=== PATIENT | male | born 1940 | race Caucasian/White ===

== ENCOUNTER 2016-11-18 12:10 | Inpatient (IN) | payer OTHER ==
[~2016-11-18] VITALS: Ht 172.7 cm; Wt 85.5 kg
[2016-11-18 12:48] LABS: MEAN CELL VOLUME 90.7 fL (80-100); MEAN CORPUSCULAR HEMOGLOBIN 31.7 pg (25-34); MEAN CORPUSCULAR HGB CONC 34.9 g/dl (32-36); MEAN PLATELET VOLUME 10.1 fL (7.4-10.4); PLATELET COUNT 187 K/uL (130-400); RED BLOOD COUNT 5.18 M/uL (4.7-6.1); WHITE BLOOD COUNT 12.88 K/uL (4.8-10.8)
--- NOTE | 2016-11-18 12:52 | DIAGNOSTIC IMAGING REPORT ---
CHEST ONE VIEW PORTABLE HISTORY: Atypical chest pain COMPARISON: None. FINDINGS: Low lung volumes. No pleural effusions. No pneumothorax. The heart is top normal in size. Mild central pulmonary vascular congestion without overt edema. No focal lung consolidations to suggest pneumonia. IMPRESSION: Mild central pulmonary vascular congestion without overt edema. Electronically signed by: Hansel العلي M.D. 11/18/2016 12:50 PM Dictated Date/Time: 11/18/2016 12:48 PM
[2016-11-18] MEDS ORDERED: TAMS0.4C38 PO (12:53)
[2016-11-18] MEDS ORDERED: PRED10TA PO (12:55)
[2016-11-18] MEDS ORDERED: PRED10PA3 PO (12:56)
[2016-11-18 12:58] LABS: INR 0.9 (0.9-1.1); PROTHROMBIN TIME (PATIENT) 9.9 SECONDS (9.0-12.0)
[2016-11-18 13:38] LABS: ALB/GLOB RATIO 0.9 (0.9-2); BUN/CREATININE RATIO 15.3 (10-20); CALCIUM 8.8 mg/dl (8.5-10.1); CREATININE 1.1 mg/dl (0.60-1.40)
[2016-11-18 13:55] LABS: POTASSIUM 3.8 mmol/L (3.5-5.1)
[2016-11-18] MEDS ORDERED: IV FLUIDS COMPLETED PRN (14:00)
[2016-11-18 14:08] LABS: CKMB/CK RATIO 1.5 (0-3.0)
[2016-11-18] MEDS ORDERED: COEN1CAP28 PO (14:22)
[2016-11-18] MEDS ORDERED: ASPEC81 PO (14:22)
[2016-11-18] MEDS ORDERED: IBUP-1459 PO (14:22)
[2016-11-18] MEDS ORDERED: MULT-506 PO (14:22)
[2016-11-18] MEDS ORDERED: TIZA4CAP PO (14:22)
[2016-11-18] MEDS ORDERED: ASCO10003 PO (14:22)
[2016-11-18] MEDS ORDERED: ACETAMINOPHEN 325 MG TAB PO PRN (14:30)
[2016-11-18] MEDS ORDERED: ONDANSETRON INJ 2 MG/ML 2 ML VIAL IV PRN (14:30)
[2016-11-18] MEDS ORDERED: NITROGLYCERIN 0.4 MG SL PER TAB CHARGE SL PRN (14:30)
[2016-11-18 14:54] VITALS: BP 125/73; PULSE 62; TEMP 36.4; O2SAT 99; Ht 172.7 cm; Wt 85.5 kg
--- NOTE | 2016-11-18 15:48 | History and Physical ---
History & Physical Date & Time of Service: November 18, 2016 ~ 14:00 Chief Complaint: Chest Pain Primary Care Physician: Tiffanie Galo M.D. History of Present Illness 76 year old male who presents to the ER with chest pain. Patient reports his first episode of chest pain was 4 days ago. He reports he noticed it when he was working outside. He describes the pain as being located in the center of his chest and radiating over to the left. He describes it as an indigestion type feeling. He rates the pain at its worst #5/10. He reports associated left arm numbness. He reports the pain improved with rest. The following day he went on his treadmill, as he typically does, and was only able to walk 1 mile when he can normally walk 2. He reports developing the same type of chest pain however this time had associated shortness of breath. He reports additional episodes of chest pain with exertion the past couple of days. He reports improvement with rest. He denies associated lightheadedness, dizziness, diaphoresis, syncope, or nausea. He reports he otherwise has been feeling well recently. He has been tolerating his ADLs without any problem. No orthopnea or lower extremity edema. He denies abdominal pain, vomiting, or diarrhea. No fever or chills. He denies urinary symptoms. In the ER, patient's initial troponin is negative and EKG does not show any acute ST changes. Patient was given full dose ASA by EMS. Past Medical/Surgical History Medical Problems: (1) BPH (benign prostatic hyperplasia) Status: Chronic Surgical Problems: (1) H/O arthroscopic knee surgery Status: Chronic (2) H/O inguinal hernia repair Status: Chronic Family History negative for premature CAD, DM, or CVA Social History Smoking Status: Former Smoker Alcohol Use: occasionally Immunizations History of Influenza Vaccine: Yes Influenza Vaccine Date: Apr 07, 2016 History of Tetanus Vaccine?: Yes Tetanus Immunization Date: Jul 13, 2012 History of Pneumococcal: Yes Pneumococcal Date: Dec 21, 2014 Allergies Coded Allergies: No Known Allergies (Unverified , 11/18/16) Home Medications Scheduled Ascorbic Acid (Vitamin C), 1,000 MG PO DAILY Aspirin (Aspirin EC Low Dose), 81 MG PO DAILY Coenzyme Q10 (Ubidecarenone) (Co Q10), 100 MG PO DAILY Multivitamin (Multivitamin), 1 TAB PO DAILY Tamsulosin Hcl (Flomax), 0.4 MG PO DAILY Scheduled PRN Ibuprofen (Motrin), 400 MG PO Q6H PRN for Pain Tizanidine (Zanaflex), 4 MG PO BID PRN for Muscle Spasms Review of Systems ROS per HPI, all other systems reviewed and negative Physical Exam Vital Signs Date Time Temp Pulse Resp B/P Pulse Ox O2 Delivery O2 Flow Rate FiO2 11/18/16 14:54 36.4 62 16 125/73 99 Room Air 11/18/16 13:53 54 18 129/69 96 Room Air 11/18/16 12:19 36.8 64 20 148/86 96 Room Air 11/18/16 12:18 66 General Appearance: no apparent distress Head: normocephalic Eyes: normal inspection ENT: hearing grossly normal Neck: supple, no JVD Respiratory/Chest: chest non-tender, lungs clear, normal breath sounds, no respiratory distress Cardiovascular: regular rate, rhythm, no edema, normal peripheral pulses Abdomen/GI: normal bowel sounds, non tender, soft Extremities/Musculoskelatal: normal inspection, no calf tenderness Neurologic/Psych: no motor/sensory deficits, alert, normal mood/affect, oriented x 3 Skin: normal color, warm/dry Diagnostics Laboratory Results Results Past 24 Hours Test 11/18/16 11:45 11/18/16 12:43 11/18/16 14:38 Range/Units White Blood Count 12.88 4.8-10.8 K/uL Red Blood Count 5.18 4.7-6.1 M/uL Hemoglobin 16.4 14.0-18.0 g/dL Hematocrit 47.0 42-52 % Mean Corpuscular Volume 90.7 80-100 fL Mean Corpuscular Hemoglobin 31.7 25-34 pg Mean Corpuscular Hemoglobin Concent 34.9 32-36 g/dl RDW Standard Deviation 48.0 36.4-46.3 fL RDW Coefficient of Variation 14.2 11.5-14.5 % Platelet Count 187 130-400 K/uL Mean Platelet Volume 10.1 7.4-10.4 fL Prothrombin Time 9.9 9.0-12.0 SECONDS Prothromb Time International Ratio 0.9 0.9-1.1 Activated Partial Thromboplast Time 26.0 21.0-31.0 SECONDS Partial Thromboplastin Ratio 1.0 D-Dimer 330 0-500 ug/L FEU Sodium Level 143 136-145 mmol/L Potassium Level 3.8 3.5-5.1 mmol/L Chloride Level 107 98-107 mmol/L Carbon Dioxide Level 27 21-32 mmol/L Anion Gap 9.0 3-11 mmol/L Blood Urea Nitrogen 17 7-18 mg/dl Creatinine 1.10 0.60-1.40 mg/dl Est Creatinine Clear Calc Drug Dose 61.9 ml/min Estimated GFR () 75.2 Estimated GFR (Non- 64.9 BUN/Creatinine Ratio 15.3 10-20 Random Glucose 108 70-99 mg/dl Calcium Level 8.8 8.5-10.1 mg/dl Total Bilirubin 0.5 0.2-1 mg/dl Aspartate Amino Transf (AST/SGOT) 12 15-37 U/L Alanine Aminotransferase (ALT/SGPT) 25 12-78 U/L Alkaline Phosphatase 72 45-117 U/L Total Creatine Kinase 55 39-308 U/L Creatine Kinase MB 0.8 0.5-3.6 ng/ml Creatine Kinase MB Ratio 1.5 0-3.0 Total Protein 7.7 6.4-8.2 gm/dl Albumin 3.7 3.4-5.0 gm/dl Globulin 4.0 2.5-4.0 gm/dl Albumin/Globulin Ratio 0.9 0.9-2 Bedside Troponin I 0.020 0-0.045 ng/ml Diagnostic Radiology CXR IMPRESSION: Mild central pulmonary vascular congestion without overt edema. Impression Assessment and Plan CHEST PAIN - admit to tele - patient presenting with exertional shortness of breath x 4 days with associated shortness of breath and left arm numbness - initial troponin negative, EKG without acute ST changes - no risk factors for CAD identified; check lipids in AM - s/p full dose ASA for EMS, will continue with 81mg daily tomorrow - continue to cycle cardiac enzymes, check resting echo; if negative, exercise stress test in AM - CXR being read as mild congestion however lungs clear on exam; D. Dimer negative BPH - continue tamsulosin DVT PROPHYLAXIS - SQ Lovenox DISPO - The patient will be placed as observation status for now until further work up is complete. ATTENDING ADDENDUM: records reviewed , pt seen and examined care co ordinated with Kathya LIPSCOMB please see her documentation for detail pt history Briefly 76 yo Male presents with exertional chest pain TODD symptom suggestive of angina chest pain free after arrival to ED P/E: GEN : No sign of distress HT: regular LUNGS: CTA ext : no lower ext edema neuro: no focal deficit Lab : POC troponin 0.02 EKG -NSR no ST-T wave changes A/P: UNSTABLE ANGINA : presented with symptom of ischemia worse with exertion no prior hx of ME monitor in tele serial cardiac markers resting ECHO ordered possible cardiac stress test in am if serial markers are negative, pt remains symptom free Fasting lipid panel /Hb A1 c ordered for risk stratification cont on Aspirin 81 mg daily PRN SL nitro for CP please refer to Kathya LIPSCOMB documentation for discussion of other issues Sandra Burkett MD Level of Care Telemetry Advanced Directives Existing Living Will: No Existing Power of Fuel House Attendant: No VTE Prophylaxis VTE Risk Assessment Done? Y/N: Yes Risk Level: Moderate Given or contraindicated: Unfractionated heparin SQ Additional Copies To Tiffanie Galo M.D.
[2016-11-18] MEDS ORDERED: ENOXAPARIN 40 MG/0.4 ML SYR SC SCH (16:00)
[2016-11-18 20:00] VITALS: BP 120/64; PULSE 58; TEMP 36.7; O2SAT 96
--- NOTE | 2016-11-18 20:29 | EMERGENCY ROOM VISIT NOTE ---
History Report prepared by Delonte: Mckayla Dalton Under the Supervision of: Dr. Henirk Guzman M.D. First contact with patient: 13:11 Chief Complaint: CHEST PAIN Stated Complaint: CHEST PAIN Nursing Triage Summary: pt arrives via EMS reports on Sat. while outside started with L shoulder and neck pain radiates into chest , with Nausea, felt tight in throat.sx all subsided after rest with the exception of tight feeling in throat , pt reports this is intermittent X 6 months , On Thursday while attempting to use treadmill became sob with exertion and only able to go 1 mile usually able to do 2 or 3. Then today started with L shoulder pain radiates into chest and back with SIDDIQUI into back of head and cont throat tightness History of Present Illness The patient is a 76 year old male who presents to the Emergency Room with complaints of persistent left sided chest pain that began prior to arrival. He currently rates his discomfort as a 6/10 in severity. The patient reports that on Thursday he was outside exerting himself and developed chest pain, neck pain and left shoulder pain. He states that each day he typically walks 2-3 miles on the treadmill, but states that on Thursday he could only do 1 mile. The patient states that on Thursday while on the treadmill he developed shortness of breath and chest pain. He additionally associates diaphoresis and nausea with his symptoms today. The patient states that today he has experienced chest pain , neck pain, diaphoresis, throat tightness, and nausea. He reports a history of an enlarged prostate, stating that he takes Flomax. Per nursing notes, the patient was given aspirin prior to arrival. The patient states that he recently finished prednisone on Thursday for a recent cold. Pt denies LOC, headache, fevers, chills, visual changes, vomiting, abdominal pain, back pain, melena, hematochezia, urinary symptoms, numbness, weakness, lymphadenopathy, rash, or other complaints. Source of History: patient Onset: prior to arrival Position: chest (left) Symptom Intensity: 6/10 Timing: other (persistent) Associated Symptoms: + SOB, + diaphoresis, + nausea, + neck pain Note: Associated Symptoms: throat tightness Review of Systems See HPI for pertinent positives and negatives. A total of ten systems were reviewed and were otherwise negative. Past Medical & Surgical Medical Problems: (1) BPH (benign prostatic hyperplasia) Surgical Problems: (1) H/O arthroscopic knee surgery (2) H/O inguinal hernia repair Family History No pertinent family history stated. Social History Smoking Status: Never Smoker Current/Historical Medications Scheduled Ascorbic Acid (Vitamin C), 1,000 MG PO DAILY Aspirin (Aspirin EC Low Dose), 81 MG PO DAILY Coenzyme Q10 (Ubidecarenone) (Co Q10), 100 MG PO DAILY Multivitamin (Multivitamin), 1 TAB PO DAILY Tamsulosin Hcl (Flomax), 0.4 MG PO DAILY Scheduled PRN Ibuprofen (Motrin), 400 MG PO Q6H PRN for Pain Tizanidine (Zanaflex), 4 MG PO BID PRN for Muscle Spasms Allergies Coded Allergies: No Known Allergies (Unverified , 11/18/16) Physical Exam Vital Signs Date Time Temp Pulse Resp B/P Pulse Ox O2 Delivery O2 Flow Rate FiO2 11/18/16 12:19 36.8 64 20 148/86 96 Room Air 11/18/16 12:18 66 Physical Exam GENERAL: Awake, alert, well-appearing, in no distress HENT: Normocephalic, atraumatic. Oropharynx unremarkable. EYES: Normal conjunctiva. Sclera non-icteric. NECK: Supple. No nuchal rigidity. FROM. No JVD. RESPIRATORY: Clear to auscultation. CARDIAC: Borderline bradycardic heart rate, normal rhythm. Extremities warm and well perfused. Pulses equal. ABDOMEN: Soft, non-distended. No tenderness to palpation. No rebound or guarding. No masses. RECTAL: Deferred. MUSCULOSKELETAL: Chest examination reveals no tenderness. The back is symmetrical on inspection without obvious abnormality. There is no CVA tenderness to palpation. No joint edema. LOWER EXTREMITIES: Calves are equal size bilaterally and non-tender. No edema. No discoloration. NEURO: Normal sensorium. No sensory or motor deficits noted. SKIN: No rash or jaundice noted. Medical Decision & Procedures ER Provider Diagnostic Interpretation: X-ray: Per my interpretation, radiologist review. CHEST ONE VIEW PORTABLE HISTORY: Atypical chest pain COMPARISON: None. FINDINGS: Low lung volumes. No pleural effusions. No pneumothorax. The heart is top normal in size. Mild central pulmonary vascular congestion without overt edema. No focal lung consolidations to suggest pneumonia. IMPRESSION: Mild central pulmonary vascular congestion without overt edema. Electronically signed by: Hansel العلي M.D. 11/18/2016 12:50 PM Dictated Date/Time: 11/18/2016 12:48 PM Laboratory Results 11/18/16 11:45 11/18/16 11:45 Test 11/18/16 11:45 11/18/16 12:43 Red Blood Count 5.18 M/uL (4.7-6.1) Mean Corpuscular Volume 90.7 fL (80-100) Mean Corpuscular Hemoglobin 31.7 pg (25-34) Mean Corpuscular Hemoglobin Concent 34.9 g/dl (32-36) RDW Standard Deviation 48.0 fL (36.4-46.3) RDW Coefficient of Variation 14.2 % (11.5-14.5) Mean Platelet Volume 10.1 fL (7.4-10.4) Prothrombin Time 9.9 SECONDS (9.0-12.0) Prothromb Time International Ratio 0.9 (0.9-1.1) Activated Partial Thromboplast Time 26.0 SECONDS (21.0-31.0) Partial Thromboplastin Ratio 1.0 D-Dimer 330 ug/L FEU (0-500) Anion Gap 9.0 mmol/L (3-11) Est Creatinine Clear Calc Drug Dose 61.9 ml/min Estimated GFR () 75.2 Estimated GFR (Non- 64.9 BUN/Creatinine Ratio 15.3 (10-20) Calcium Level 8.8 mg/dl (8.5-10.1) Total Bilirubin 0.5 mg/dl (0.2-1) Aspartate Amino Transf (AST/SGOT) 12 U/L (15-37) Alanine Aminotransferase (ALT/SGPT) 25 U/L (12-78) Alkaline Phosphatase 72 U/L (45-117) Total Creatine Kinase 55 U/L (39-308) Pro-B-Type Natriuretic Peptide 26 pg/ml (0-1800) Total Protein 7.7 gm/dl (6.4-8.2) Albumin 3.7 gm/dl (3.4-5.0) Globulin 4.0 gm/dl (2.5-4.0) Albumin/Globulin Ratio 0.9 (0.9-2) Bedside Troponin I 0.020 ng/ml (0-0.045) Laboratory results reviewed by me ECG Indication: chest pain Rate (beats per minute): 60 Rhythm: normal sinus Findings: no acute ischemic change, no ectopy ED Course 1317: The patient was evaluated in room C12B. A complete history and physical exam was performed. I discussed all the exam findings with him and I discussed the treatment plan. He verbalized complete understanding and agreement. He will be evaluated for further treatment. 1340: I discussed the patients case with Lizzie Swartz. She is going to evaluate the patient for further treatment. Medical Decision Medication Reconciliation: I attest that I have personally reviewed the patient' s current medication list Blood pressure screening: Patient was found to have an elevated blood pressure and was referred to their primary doctor for recheck and further treatment. Triage Nursing notes reviewed. The patient's presentation and history were concerning for chest pain. Etiologies such as cardiac ischemia, aortic dissection, pulmonary embolism, pneumonia, pneumothorax, musculoskeletal, infections, gastrointestinal, as well as others were entertained. The patient was evaluated. He was doing much better than before. His symptoms have abated. His ECG was nonischemic. He was given aspirin prehospital. His CBC shows a slight leukocytosis. Chem panel, LFTs, lipase, and cardiac markers are negative. Chest x-ray was unremarkable. The patient has an excellent story for cardiac chest pain and will need further evaluation and management in the hospital. Consultation was made with internal medicine. The patient was evaluated in the Emergency Room for further management. The chart was completed utilizing [employer] Speech voice recognition software. Grammatical errors, random word insertions, pronoun errors, and incomplete sentences are an occasional consequence of this system due to software limitations, ambient noise, and hardware issues. Any formal questions or concerns about the content, text, or information contained within the body of this dictation should be directly addressed to the physician for clarification. Consults Time Called: 1334 Consulting Physician: Lizzie Swartz Returned Call: [phone] I discussed the patients case with Lizzie Swartz. She is going to evaluate the patient for further treatment. Impression Primary Impression: Substernal chest pain Scribe Attestation The scribe's documentation has been prepared under my direction and personally reviewed by me in its entirety. I confirm that the note above accurately reflects all work, treatment, procedures, and medical decision making performed by me. Departure Information Dispostion Being Evaluated By Hospitalist
[2016-11-18 23:20] VITALS: BP 116/68; PULSE 57; TEMP 36.6; O2SAT 97
[2016-11-19] VITALS (21 sets, daily range): BP systolic 94–148; BP diastolic 47–98; PULSE 55–83; TEMP 36.5–36.7; O2SAT 90–99
[2016-11-19 04:39] LABS: BASO % 0.4 %; BASO ABS # 0.03 K/uL (0-0.2); COMPLETE YES; EOS % 3.1 %; HEMATOCRIT 45.8 % (42-52); IG% 0.3 %; LYMPH % 32.7 %; LYMPH ABS # 2.34 K/uL (1.2-3.4); MEAN CELL VOLUME 90.3 fL (80-100); MEAN CORPUSCULAR HEMOGLOBIN 30.2 pg (25-34); MEAN CORPUSCULAR HGB CONC 33.4 g/dl (32-36); MEAN PLATELET VOLUME 9.5 fL (7.4-10.4); MONO % 9.7 %; NEUT % 53.8 %; PLATELET COUNT 185 K/uL (130-400); RED BLOOD COUNT 5.07 M/uL (4.7-6.1); WHITE BLOOD COUNT 7.15 K/uL (4.8-10.8)
[2016-11-19 04:52] LABS: BUN/CREATININE RATIO 14.4 (10-20); CALCIUM 8.3 mg/dl (8.5-10.1); CREATININE 1.2 mg/dl (0.60-1.40); POTASSIUM 4.1 mmol/L (3.5-5.1)
[2016-11-19 05:29] LABS: CHOLESTEROL/HDL RATIO 3.6
[2016-11-19] MEDS ORDERED: HEPARIN 25,000 UNIT/500ML D5W 500 ML IV PRN (08:15)
[2016-11-19] MEDS ORDERED: HEPARIN IV BOLUS 6,000 UNIT in SYRINGE 0 ML IV ONE (08:15)
[2016-11-19] MEDS: ASPIRIN 81 MG ECTAB PO SCH (08:29)
[2016-11-19] MEDS: MULTIVITAMIN TAB PO SCH (08:29)
[2016-11-19] MEDS: ASCORBIC ACID 500 MG TAB PO SCH (08:29)
[2016-11-19 08:39] LABS: PROTHROMBIN TIME (PATIENT) 10.4 SECONDS (9.0-12.0)
[2016-11-19] MEDS ORDERED: SODIUM CHLORIDE 0.9% 1000ML 1,000 ML IV SCH (08:59)
[2016-11-19] MEDS ORDERED: TAMSULOSIN HCL 0.4 MG CAP PO SCH (09:00)
[2016-11-19] MEDS ORDERED: DC ALL ANTICOAGULANTS ONE (09:00)
[2016-11-19] MEDS ORDERED: NON-FORMULARY MEDICATION (Coenzyme Q10 (Ubidecarenone) (Co Q10) 100 MG) PO SCH (09:00)
[2016-11-19 09:17] LABS: URINE APPEARANCE CLEAR (CLEAR); URINE BILIRUBIN NEG (NEG); URINE COLOR YELLOW; URINE NITRITE NEG (NEG); URINE SPECIFIC GRAVITY 1.015 (1.000-1.030); UROBILINOGEN NEG (NEG); ZZUR CULT IF INDIC CLEAN CATCH NO
[2016-11-19] MEDS ORDERED: HEPARIN SOD (PORCINE) 1000 UNIT/ML 10 ML VIAL ONE (09:17)
[2016-11-19] MEDS ORDERED: NITROGLYCERIN/D5W 100MCG/ML 20ML SYR ONE (09:18)
[2016-11-19] MEDS ORDERED: MIDAZOLAM HCL 1 MG/ML 2ML VIAL ONE ×2 (09:18→10:42)
[2016-11-19] MEDS ORDERED: NiCARDipine HCL INJ 2.5 MG/ML 10 ML AMP ONE (09:19)
[2016-11-19] MEDS ORDERED: FENTANYL CITRATE INJ 50 MCG/1 ML 2 ML VIAL ONE ×2 (09:19→11:07)
[2016-11-19 09:21] LABS: MANUAL MICROSCOPIC REQUIRED? NO; REVIEW REQ? NO
--- NOTE | 2016-11-19 09:30 | CONSULTATION REPORT ---
DATE OF CONSULTATION: 11/19/2016 REFERRING PHYSICIAN: Lizzie meade. REASON FOR CONSULTATION: Chest pain. HISTORY OF PRESENT ILLNESS: This is a 76-year-old male patient who has lived a healthy life. He is very active and works out on a treadmill. He has had no prior history of heart disease, strokes, kidney disease, diabetes or hypertension. Recently, he has been experiencing activity-related chest pain. He states that he was doing some work on an air conditioner on his roof and developed discomfort which caused him to come down from the roof and rest for about a half hour before it resolved. He took [id number] Nexium, which he thought may have improved his discomfort. Eventually, he was brought to the Emergency Department and admitted with chest pain. He has had a borderline elevation in his cardiac markers. His EKGs are normal. ALLERGIES: No known medical allergies. PAST MEDICAL HISTORY: He has been treated for benign prostatic hypertrophy. He has also had some minor arthroscopic knee surgery and an inguinal hernia repair. FAMILY MEDICAL HISTORY: Noncontributory. SOCIAL HISTORY: He is a former smoker. He lives independently. REVIEW OF SYSTEMS: A 10-point review of systems is negative except for the history of chief complaint. PHYSICAL EXAMINATION: GENERAL: He is alert and oriented. VITAL SIGNS: Blood pressure is 120/70, pulse is regular at 60 beats per minute. He is afebrile. HEENT: Normocephalic. Pupils are equal and reactive to light. Extraocular muscles are intact bilaterally. NECK: The neck veins are flat. Carotids have good upstrokes bilaterally without bruits. Thyroid is nonpalpable. RESPIRATORY: Breath sounds equal bilaterally and clear to auscultation. CARDIOVASCULAR: Heart has a regular rhythm. Normal S1, S2. No S3, S4. No cardiac rubs or murmurs. GASTROINTESTINAL: Abdomen is soft, nontender without organomegaly. EXTREMITIES: Free of edema, digit clubbing, or cyanosis. NEUROLOGIC: Grossly intact. SKIN: Warm to touch. LYMPH NODES: Negative to palpation. LABORATORY DATA: Hemoglobin is 16.4, platelet count is 187. Potassium is 3.8, creatinine is 1.1. IMPRESSION: 1. New onset angina. 2. Non-ST segment elevation myocardial infarction. RECOMMENDATIONS: The patient has a very good story for new onset angina and with his elevated cardiac markers, I think we should proceed with a cardiac catheterization. I have explained the risks, benefits and intent of the procedure to him including the potential for catheter based intervention such as balloon angioplasty or intracoronary stents. We will have further evaluation and recommendations following the above.
--- NOTE | 2016-11-19 10:08 | Procedure Note ---
Pre-Mod Sedation Assessment General Date of Moderate Sedation: November 19, 2016. Start 9:31 AM Vital Signs: Vital Signs Past 12 Hours Date Time Temp Pulse Resp B/P Pulse Ox O2 Delivery O2 Flow Rate FiO2 11/19/16 07:30 36.5 55 18 112/68 97 Room Air 11/19/16 04:00 120/65 11/19/16 04:00 96 Room Air 11/19/16 03:13 36.7 64 19 94/62 96 Room Air 11/19/16 00:00 97 Room Air 11/18/16 23:20 36.6 57 18 116/68 97 Room Air Review Cardiovascular: regular rate, rhythm, no edema, no murmur Abdomen: normal bowel sounds, non tender Lungs: lungs clear, normal breath sounds Pre-Sedation Airway Assessment Oral Cavity: Dentures Able to Visualize Vocal Cords: No Short Thick Neck: No Hx of Sleep Apnea: No Smoking Status: Never Smoker Mallampati Classification: Class I ASA Classification: Class I Procedure Planning Contraindications-for Mod Sed: None Yes Notes The planned sedation has been discussed with the patient and consent obtained. I have identified the patient, determined the appropriateness of sedation and have assessed the patient immediately prior to the procedure. All medicine(s) and interventions are by my order.
--- NOTE | 2016-11-19 10:09 | Procedure Note ---
Post-Mod Sedation Assessment General Date of Moderate Sedation November 19, 2016. 9:58 AM Vital Signs: Vital Signs Past 12 Hours Date Time Temp Pulse Resp B/P Pulse Ox O2 Delivery O2 Flow Rate FiO2 11/19/16 07:30 36.5 55 18 112/68 97 Room Air 11/19/16 04:00 120/65 11/19/16 04:00 96 Room Air 11/19/16 03:13 36.7 64 19 94/62 96 Room Air 11/19/16 00:00 97 Room Air 11/18/16 23:20 36.6 57 18 116/68 97 Room Air Review - Discharge Criteria Vital Signs Stable: Yes Alert/Oriented/Conversant: Yes Returned to Baseline Mental St: Yes Nausea Absent/Minimal: Yes Pain/Discomfort/Absent/Minimal: Yes Normal/Baseline Respirations: Yes Active Bleeding?: Yes Pt Received D/C Instructions: Yes Prescriptions Given: None Specific Proced. D/C Criteria Distal Pulses Present (Cardiac: N/A Groin site assessed-Card Cath: N/A Voided Prior To Discharge: N/A Discharged Patients Adult Escort/Transportation: N/A
--- NOTE | 2016-11-19 10:42 | Cardiac Catheterization ---
Procedure Note Procedure Date November 19, 2016. Pre-Procedure Diagnosis Non STEMI AUC Score 9 Post-Procedure Diagnosis Severe CAD Procedure(s) Performed Coronary Angiography, Left Heart Cath, LV Angiography Recycling Specialist Dr. Coleman Film Developer(s) None Estimated Blood Loss None Medication(s) Versed, Lidocaine 1% Summary of Findings High grad stenosis of the Circ Marginal and distal LAD. Circ is hyperdominate Lad is small. Hemodynamics Rest Ao: 90/56 Final Ao: 108/50 LV: 109/3 Recommendations PCI without planned CABG Specimens None Radiation Exposure (mGy) 503 Contrast (mls) 116 Fluids (cc crystalloids) 36 Procedural Complication(s) None Disposition Recovery Room / PACU ACC Data Cardiac Status Clinical evaluation leading to the procedure CAD Presntation: Unstable angina Anginal Classification: CCS III Heart Failure: No Cardiogenic Shock w/in 24Hrs: No Cardiac Arrest w/in 24Hrs: No Imaging studies past 6 months: Yes Stress studies past 6 months: Yes Standard Exercise Stress Test: No Stress Echocardiogram: No Stress Testing w/SPECT MPI: No Cardiac CTA: No Coronary Anatomy Dominant: Left Left Main (% Stenosis): Normal LAD (% Stenosis): Mid (70) OM1 (% Stenosis): Mid (90) RCA (% Stenosis): Normal Left Ventricular Angiography EF (%): 60 Mitral Regurgitation: None Diagnostic Status: Urgent Closure Device Percutaneous Entry Location: Radial Closure Device: Radial Band Recommendations: PCI without planned CABG
[2016-11-19] MEDS: EPTIFIBATIDE INJ 75 MG PREMIXED IV SCH ×4 (11:00→23:49)
[2016-11-19] MEDS ORDERED: METOPROLOL TARTRATE 1 MG/ML VIAL ONE (11:04)
[2016-11-19] MEDS ORDERED: MoRPHine SULFATE 2 MG/ML CARP ONE ×3 (11:47→13:19)
[2016-11-19] MEDS ORDERED: NITROGLYCERIN/D5W 100 MCG/ML BTL ONE (12:01)
--- NOTE | 2016-11-19 12:10 | Procedure Note ---
Post-Mod Sedation Assessment General Date of Moderate Sedation November 19, 2016. Vital Signs: Vital Signs Past 12 Hours Date Time Temp Pulse Resp B/P Pulse Ox O2 Delivery O2 Flow Rate FiO2 11/19/16 11:55 58 16 163/106 98 Nasal Cannula 4 11/19/16 11:40 65 16 169/97 98 Nasal Cannula 4 11/19/16 11:35 68 16 98 Nasal Cannula 6 11/19/16 11:30 77 16 169/100 98 Nasal Cannula 6 11/19/16 11:25 70 16 166/100 98 Nasal Cannula 6 11/19/16 08:00 97 Room Air 11/19/16 07:30 36.5 55 18 112/68 97 Room Air 11/19/16 04:00 120/65 11/19/16 04:00 96 Room Air 11/19/16 03:13 36.7 64 19 94/62 96 Room Air Review - Discharge Criteria Vital Signs Stable: Yes Alert/Oriented/Conversant: Yes Returned to Baseline Mental St: Yes Nausea Absent/Minimal: No Pain/Discomfort/Absent/Minimal: No Normal/Baseline Respirations: Yes Active Bleeding?: Yes Pt Received D/C Instructions: N/A Prescriptions Given: None Specific Proced. D/C Criteria Distal Pulses Present (Cardiac: N/A Groin site assessed-Card Cath: N/A Voided Prior To Discharge: N/A Discharged Patients Adult Escort/Transportation: N/A
[2016-11-19] MEDS ORDERED: NITROGLYCERIN/D5W 100 MCG/ML 250 ML IV PRN (12:15)
[2016-11-19] MEDS ORDERED: EPTIFIBATIDE BOLUS / DRIP IV ONE (12:15)
[2016-11-19] MEDS ORDERED: LORAZEPAM INJ 0.5 MG in SYRINGE 0.75 ML IV PRN (12:15)
[2016-11-19] MEDS ORDERED: ONDANSETRON INJ 2 MG/ML 2 ML VIAL IV PRN (12:15)
[2016-11-19] MEDS ORDERED: ATROPINE SULFATE 0.1 MG/ML 5ML SYR IV PRN (12:15)
[2016-11-19 12:42] LABS: BASO % 0.2 %; BASO ABS # 0.02 K/uL (0-0.2); EOS % 1.9 %; IG% 0.2 %; LYMPH % 22.8 %; LYMPH ABS # 2.27 K/uL (1.2-3.4); MEAN CELL VOLUME 90.4 fL (80-100); MEAN CORPUSCULAR HEMOGLOBIN 31.5 pg (25-34); MEAN PLATELET VOLUME 9.9 fL (7.4-10.4); MONO % 6.8 %; NEUT % 68.1 %; PLATELET COUNT 178 K/uL (130-400); RED BLOOD COUNT 5.31 M/uL (4.7-6.1); WHITE BLOOD COUNT 9.97 K/uL (4.8-10.8)
--- NOTE | 2016-11-19 12:44 | Cardiac Catheterization ---
Procedure Note Procedure Date November 19, 2016. 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 Summary of Findings Clinical indications: Non ST elevation myocardial infarction and severe left circumflex second marginal stenosis. Catheterization site: 6 Swiss glide sheath right radial artery. This had been inserted at the time of diagnostic cardiac catheterization. Equipment: 6 Swiss EBU 3.75 guide catheter, [place] guidewire, Whisper guidewire, Luge guidewire, 2.0 x 12 mm balloon dilatation catheter. Protocol: Intravenous Versed and Integrilin were administered prior to attempted PCI. Therapeutic activated clotting time documented. It was originally planned to pass the [place] guidewire cross the second left circumflex marginal stenosis and then to perform primary stenting. Because of multiple bends in the vessel the tip of this guidewire could not be advanced into the second left circumflex marginal. The tip would initially access the marginal. When the wire was attempted to be advanced it would prolapse into the adjacent 1st obtuse marginal branch. The balloon dilatation catheter was then advanced over the guidewire. Despite the backup provided by the balloon dilatation catheter the [place] wire would still not advance into the 2nd left circumflex marginal artery. The guidewire was then exchanged for the Whisper guidewire. Multiple attempts were made at accessing the 2nd marginal. Again when the proximal segment of the marginal was accessed the guidewire could not be advanced further. It would again prolapse out of the 2nd marginal. Ultimately there was a loop at the tip of the wire. This was able to be advanced to the lesion. However, the looped guidewire would not advance across the lesion. The balloon dilatation catheter was then advanced into the very proximal segment of the 2nd marginal. The guidewire was withdrawn slightly to eliminate the loop. It was then attempted to advanced the straightened guidewire cross the proximal 2nd left circumflex marginal subtotal occlusion. The guidewire tip would not advance across the lesion. During manipulation of this guidewire the vessel initially became totally occluded. CHRIS 0 flow. The patient developed severe chest pain and significant ST segment elevations on the monitored leads. He was given intravenous Versed and fentanyl. He was given intravenous metoprolol. He developed nausea for which intravenous Zofran was administered. Multiple attempts were made at passing the Whisper wire across the lesion. These were unsuccessful. Attempts at crossing the proximal left circumflex marginal occlusion with the Luge wire were also unsuccessful. CHRIS 1 flow was then present. The ST segment elevations on the monitored leads decreased. Although his chest pain persisted, it decreased in intensity. During these events he was hypertensive. He had no ventricular arrhythmias. It was felt best to terminate the procedure at that time . Further attempts at crossing the lesion would increase the risk of vessel perforation. Dr. Coleman was consulted. We reviewed the images together. We both felt it was best to terminate the procedure at that time. At the completion of procedure the patient was still complaining of chest discomfort. He was started on intravenous nitroglycerin for chest pain and blood pressure control. Hemostasis: Terumo TR band. Complications: Acute closure of 2nd left circumflex marginal during attempts at passing a guidewire across the severe proximal stenosis. Inability to pass a guidewire across the occlusion. Cannot exclude an underlying dissection. Suspect that the lesion was eccentric and calcified. Plan: Transfer to the intensive care unit. ECG monitoring for at least the next 48 hours. Serial electrocardiograms and cardiac enzymes. Post procedure CBC and PRP. Intravenous Integrilin for at least 18 hours. Continue aspirin. Start beta-césar, RENÉE inhibitor, and statin therapy. Follow-up echocardiogram tomorrow to reassess left ventricular systolic function and wall motion. Narcotic analgesics for control of pain. The patient will have continued cardiology follow-up while hospitalized with . The results of this procedure were discussed with the patient's daughter by . the results were discussed extensively by me with the patient's son Jakob. 90 minutes of critical care time was performed by me in management of this patient in the cardiac catheterization laboratory. Hemodynamics Rest Ao: 90/56/70 mm Hg Final Ao: 168/88/122 mm Hg LV: NA Recommendations Medical therapy and/or Counseling Specimens None Radiation Exposure (mGy) Total of 6686 for the diagnostic and attempted PCI procedures. Contrast (mls) 285 mL Visip for attempted PCI. 116 mL had been used for diagnostic study Fluids (cc crystalloids) Total of 280 mL for both procedures Drains None Anesthesia Intravenous Versed and fentanyl. Procedural Complication(s) Acute closure of left circumflex marginal Acute closure of 2nd left circumflex marginal during attempts at passing a guidewire across subtotal proximal stenosis. Disposition ICU ACC Data Cardiac Status Clinical evaluation leading to the procedure CAD Presntation: Unstable angina, Non STEMI Anginal Classification: CCS III Heart Failure: No Cardiogenic Shock w/in 24Hrs: No Cardiac Arrest w/in 24Hrs: No Imaging studies past 6 months: Yes (Please see Dr. Coleman's diagnostic report for complete details of the testing and description coronary anatomy.) Left Ventricular Angiography EF (%): NA Diagnostic Physician's Name: Tylor Coleman, DO Status: Elective Closure Device Percutaneous Entry Location: Radial Closure Device: Radial Band Recommendations: Medical therapy and/or Counseling PCI Indication: PCI for high risk Non-STEMI Lesion Segment Name: Proximal left circumflex marginal Culprit Artery: Yes Stenosis Prior to Rx (%): 99 Chronic Total Occlusion: No IVUS: No FFR: No Pre-Procedure CHRIS Flow: 3 Lesion Complexity: Non-High/Non-C Lesion Length (mm): 8 Bifurcation Lesion: No Guidewire Across Lesion: No Intraprocedure Events Significant Dissection: No Perforation: No
[2016-11-19 12:52] LABS: COMPLETE YES; MEAN CORPUSCULAR HGB CONC 34.8 g/dl (32-36)
[2016-11-19 13:02] LABS: BUN/CREATININE RATIO 16.6 (10-20); CALCIUM 8.4 mg/dl (8.5-10.1)
[2016-11-19] MEDS ORDERED: LORAZEPAM 2 MG/ML 1 ML VIAL IV PRN (13:30)
[2016-11-19] MEDS: MoRPHine SULFATE 2 MG/ML CARP IM PRN (13:31)
[2016-11-19] MEDS: SODIUM CHLORIDE 0.9% 1000ML 1,000 ML IV SCH (13:32)
[2016-11-19 13:38] LABS: CKMB/CK RATIO 2.3 (0-3.0)
[2016-11-19] MEDS ORDERED: EPTIFIBATIDE 2 MG/ML 10 ML VIAL IV ONE (13:50)
--- NOTE | 2016-11-19 16:36 | ECHOCARDIOGRAM REPORT ---
*NOTICE TO RECEIVING DEMOCRAT AGENCY This information is strictly Confidential and protected under [place] law. [place] law prohibits you from making any further disclosure of this information unless further disclosure is expressly permitted by the written consent of the person to whom it pertains or is authorized by law. A general authorization for the release of medical or other information is not sufficient for this purpose. Hospital accepts no responsibility if the information is made available to any other person, INCLUDING THE PATIENT. Interpretation Summary * Name: WM APARICIO Study Date: 11/19/2016 07:00 AM BP: 112/68 mmHg * Patient Location: .2E\S\E207\S\1 HR: 55 * : 1940 (M/d/yy) Gender: Male Height: 68 in * Age: 76 yrs Ethnicity: CA Weight: 195 lb * Ordering Physician: Kathya Sheriff * Performed By: Deborah Dupree RDCS * * Reason For Study: Chest pain * BSA: 2.0 m2 * -- Conclusions -- * There is mild concentric left ventricular hypertrophy. * Left ventricular systolic function is normal. * Ejection Fraction = 65-70%. * The left ventricular wall motion is normal. * The right ventricular systolic function is normal. * No significant valvular disease. Procedure Details * A complete two-dimensional transthoracic echocardiogram was performed (2D, M-mode, Doppler and color flow Doppler). Left Ventricle * The left ventricle is normal in size. * There is mild concentric left ventricular hypertrophy. * Ejection Fraction = 65-70%. * Left ventricular systolic function is normal. * The left ventricular wall motion is normal. Right Ventricle * The right ventricle is normal size. * The right ventricular systolic function is normal. Atria * The left atrial size is normal. * Right atrial size is normal. * The interatrial septum is intact with no evidence for an atrial septal defect. Mitral Valve * The mitral valve anatomy is normal. * Significant mitral regurgitation is absent. Tricuspid Valve * The tricuspid valve anatomy is normal. * Significant tricuspid regurgitation is absent. Aortic Valve * The aortic valve is tricuspid. The leaflet thickness if normal. There is no aortic stenosis, and no significant insufficiency. * Aortic stenosis is absent. * There is no significant aortic regurgitation. Pulmonic Valve * The pulmonic valve is not well visualized. Great Vessels * The aortic root and proximal ascending aorta are normal sized. Pericardium/Pleural * There is no pericardial effusion. MMode 2D Measurements and Calculations IVSd 1.1 cm LVIDd 4.6 cm LVIDs 3.0 cm LVPWd 1.1 cm IVS/LVPW 1.0 FS 35.5 % EDV(Teich) 96.4 ml ESV(Teich) 33.8 ml EF(Teich) 65.0 % EDV(cubed) 96.2 ml ESV(cubed) 25.9 ml EF(cubed) 73.1 % LV mass(C)d 179.5 grams LV mass(C)dI 88.8 grams/m\S\2 SV(Teich) 62.6 ml SI(Teich) 31.0 ml/m\S\2 SV(cubed) 70.3 ml SI(cubed) 34.8 ml/m\S\2 Ao root diam 3.2 cm Ao root area 8.0 cm\S\2 ACS 1.8 cm LA dimension 3.5 cm asc Aorta Diam 3.3 cm LA/Ao 1.1 LVOT diam 2.0 cm LVOT area 3.1 cm\S\2 LVAd ap4 22.4 cm\S\2 LVLd ap4 7.3 cm EDV(MOD-sp4) 55.4 ml EDV(sp4-el) 57.9 ml LVAs ap4 12.2 cm\S\2 LVLs ap4 6.4 cm ESV(MOD-sp4) 19.8 ml ESV(sp4-el) 19.8 ml EF(MOD-sp4) 64.2 % EF(sp4-el) 65.8 % LVAd ap2 21.7 cm\S\2 LVLd ap2 7.2 cm EDV(MOD-sp2) 54.4 ml EDV(sp2-el) 56.0 ml LVAs ap2 11.7 cm\S\2 LVLs ap2 6.1 cm ESV(MOD-sp2) 20.3 ml ESV(sp2-el) 19.2 ml EF(MOD-sp2) 62.8 % EF(sp2-el) 65.8 % LVLd %diff -2.62 % EDV(MOD-bp) 54.6 ml LVLs %diff -4.40 % ESV(MOD-bp) 20.2 ml EF(MOD-bp) 63.0 % SV(MOD-sp4) 35.6 ml SI(MOD-sp4) 17.6 ml/m\S\2 SV(MOD-sp2) 34.1 ml SI(MOD-sp2) 16.9 ml/m\S\2 SV(MOD-bp) 34.4 ml SI(MOD-bp) 17.0 ml/m\S\2 SV(sp4-el) 38.1 ml SI(sp4-el) 18.8 ml/m\S\2 SV(sp2-el) 36.8 ml SI(sp2-el) 18.2 ml/m\S\2 Doppler Measurements and Calculations MV E max valeria 54.3 cm/sec MV A max valeria 71.3 cm/sec MV E/A 0.76 MV dec time 0.20 sec Ao V2 max 139.1 cm/sec Ao max PG 7.7 mmHg Ao max PG (full) 3.6 mmHg RADHA(V,A) 2.2 cm\S\2 RADHA(V,D) 2.2 cm\S\2 LV V1 max PG 4.1 mmHg LV V1 max 101.4 cm/sec PA V2 max 115.4 cm/sec PA max PG 5.3 mmHg PA acc slope 488.5 cm/sec\S\2 PA acc time 0.12 sec PI max valeria 101.8 cm/sec PI max PG 4.1 mmHg PI dec slope 67.0 cm/sec\S\2 PI P1/2t 444.7 msec TR max valeria 204.3 cm/sec PA pr(Accel) 26.7 mmHg
--- NOTE | 2016-11-19 17:39 | Critical Care Consultation ---
Critical Care Consultation Date of Consultation: November 19, 2016. Attending Physician: Sandra Burkett M.D. Reason for Consultation: STEMI History of Present Illness This is a 76 year old male who presents to the ED with chest pain. The worst he felt was 5/10. It was precipitated by him going on his treadmill exercise. On admission he denied associated lightheadedness, dizziness, diaphoresis, syncope, or nausea. In the ER, patient's initial troponin is negative and EKG does not show any acute ST changes. Patient was given full dose ASA by EMS. He developed a troponin peak of 0.26 early this am and was taked to the environmental laboratory technician for NSTEMI. There he was found to have a hyperdominant circumflex with OM1 severe stenosis not amenable to wiring or dilatation. LAD 70% stenosis was felt to be not the culprit. He developed NSTEMI with ST elevations in V5-V6 with I and II. He says he started developing pain 9-10/10 in the environmental laboratory technician. He is sent to MICU for medical management with integrillin and Plavix, ASA. patient denies nausea abdominal pain but reports midsternal chest pain non radiating with SOB and diaphoresis. No other complaints on 10 point ROS. About 2-3 hours after admission to the unit the patient said his pain subsided and it is <2/10 He only received one dose morphine sulfate on admission. Past Medical/Surgical History Medical Problems: (1) BPH (benign prostatic hyperplasia) Status: Chronic Surgical Problems: (1) H/O arthroscopic knee surgery Status: Chronic (2) H/O inguinal hernia repair Status: Chronic Social History Smoking Status: Former Smoker Alcohol Use: occasionally Allergies Coded Allergies: No Known Allergies (Unverified , 11/18/16) Home Medications Scheduled Ascorbic Acid (Vitamin C), 1,000 MG PO DAILY Aspirin (Aspirin EC Low Dose), 81 MG PO DAILY Coenzyme Q10 (Ubidecarenone) (Co Q10), 100 MG PO DAILY Multivitamin (Multivitamin), 1 TAB PO DAILY Tamsulosin Hcl (Flomax), 0.4 MG PO DAILY Scheduled PRN Ibuprofen (Motrin), 400 MG PO Q6H PRN for Pain Tizanidine (Zanaflex), 4 MG PO BID PRN for Muscle Spasms Current Inpatient Medications Current Inpatient Medications Medications (Trade) Dose Ordered Sig/Sergei Route Start Time Stop Time Status Last Admin Dose Admin Miscellaneous (Iv Fluids Completed) 1 ea PRN PRN N/A 11/18/16 14:00 11/18/17 13:59 Acetaminophen (Tylenol Tab) 650 mg Q4H PRN PO 11/18/16 14:30 12/18/16 14:29 Ondansetron HCl (Zofran Inj) 4 mg Q6H PRN IV 11/18/16 14:30 12/18/16 14:29 Nitroglycerin (Nitrostat Tab) 0.4 mg UD PRN SL 11/18/16 14:30 12/18/16 14:29 Aspirin (Ecotrin Tab) 81 mg DAILY PO 11/19/16 09:00 12/19/16 08:59 11/19/16 08:29 81 MG Multivitamins (Multivitamin Tab) 1 tab DAILY PO 11/19/16 09:00 12/19/16 08:59 11/19/16 08:29 1 TAB Ascorbic Acid (Vitamin C Tab) 1,000 mg DAILY PO 11/19/16 09:00 12/19/16 08:59 11/19/16 08:29 1,000 MG Tamsulosin HCl 0.4 mg 0.4 mg HS PO 11/19/16 21:00 12/19/16 20:59 Sodium Chloride (Nss 1000ml) 1,000 ml @ 125 mls/hr Q8H IV 11/19/16 12:15 12/19/16 12:14 Atropine Sulfate (Atropine Sulfate 0.1MG/Ml Inj) 0.5 mg ONE PRN IV 11/19/16 12:15 12/19/16 12:14 Metoprolol Tartrate (Lopressor Tab) 25 mg Q12 PO 11/19/16 21:00 12/19/16 20:59 Lisinopril 5 mg 5 mg QAM PO 11/20/16 09:00 12/20/16 08:59 Lorazepam/Syringe (Ativan Inj/ Syringe) 1 ml @ 1 mls/min Q6H PRN IV 11/19/16 12:15 12/19/16 12:14 Atorvastatin Calcium 80 mg 80 mg QAM PO 11/20/16 09:00 12/20/16 08:59 Nitroglycerin/ Dextrose 250 ml @ 0 mls/hr Q0M PRN IV 11/19/16 12:15 12/19/16 12:14 Eptifibatide (Integrilin Inj) 100 ml @ 14 mls/hr Q7H9M IV 11/19/16 12:30 11/20/16 06:00 Miscellaneous (Stop Order) 1 ea ONE ONCE N/A 11/20/16 06:00 11/20/16 06:01 Review of Systems As noted in the HPI a 10 point ROS is otherwise negative Physical Exam Date Time Temp Pulse Resp B/P Pulse Ox O2 Delivery O2 Flow Rate FiO2 11/19/16 11:55 58 16 163/106 98 Nasal Cannula 4 11/19/16 11:40 65 16 169/97 98 Nasal Cannula 4 11/19/16 11:35 68 16 98 Nasal Cannula 6 11/19/16 11:30 77 16 169/100 98 Nasal Cannula 6 11/19/16 11:25 70 16 166/100 98 Nasal Cannula 6 11/19/16 08:00 97 Room Air 11/19/16 07:30 36.5 55 18 112/68 97 Room Air 11/19/16 04:00 120/65 11/19/16 04:00 96 Room Air 11/19/16 03:13 36.7 64 19 94/62 96 Room Air 11/19/16 00:00 97 Room Air 11/18/16 23:20 36.6 57 18 116/68 97 Room Air 11/18/16 20:00 36.7 58 120/64 96 Room Air 11/18/16 20:00 96 Room Air 11/18/16 14:54 36.4 62 16 125/73 99 Room Air 11/18/16 13:53 54 18 129/69 96 Room Air General Appearance: well-appearing, mild distress Head: normocephalic, atraumatic Eyes: PERRLA, no discharge ENT: normal sinus exam Neck: normal range of motion, supple Respiratory: clear to auscultation Cardiovasular: regular rate/rhythm, no M/G/R Abdomen: non tender, normal bowel sounds, no rebound, no masses, no guarding Genitourinary - Male: external genitalia normal Back: normal inspection Upper Extremities: no edema, other (had the cath entery site in the RUE) Lower Extremities: no edema Pulses: carotid (R) (2+), carotid (L) (2+), dorsalis pedis (R) (2+), dorsalis pedis (L) (2+), posterior tibial (R), posterior tibial (L) Neuro: alert, oriented x 3, normal motor exam Psychiatric: normal affect Laboratory Results Last 24 Hours Test 11/18/16 18:00 11/18/16 18:07 11/19/16 00:00 11/19/16 00:36 Creatine Kinase MB Ratio Creatine Kinase MB 1.8 ng/ml 1.9 ng/ml Troponin I 0.116 ng/ml 0.262 ng/ml Test 11/19/16 04:03 11/19/16 08:22 11/19/16 09:05 11/19/16 09:57 White Blood Count 7.15 K/uL Red Blood Count 5.07 M/uL Hemoglobin 15.3 g/dL Hematocrit 45.8 % Mean Corpuscular Volume 90.3 fL Mean Corpuscular Hemoglobin 30.2 pg Mean Corpuscular Hemoglobin Concent 33.4 g/dl Platelet Count 185 K/uL Mean Platelet Volume 9.5 fL Neutrophils (%) (Auto) 53.8 % Lymphocytes (%) (Auto) 32.7 % Monocytes (%) (Auto) 9.7 % Eosinophils (%) (Auto) 3.1 % Basophils (%) (Auto) 0.4 % Neutrophils # (Auto) 3.85 K/uL Lymphocytes # (Auto) 2.34 K/uL Monocytes # (Auto) 0.69 K/uL Eosinophils # (Auto) 0.22 K/uL Basophils # (Auto) 0.03 K/uL RDW Standard Deviation 47.7 fL RDW Coefficient of Variation 14.5 % Immature Granulocyte % (Auto) 0.3 % Immature Granulocyte # (Auto) 0.02 K/uL Sodium Level 140 mmol/L Potassium Level 4.1 mmol/L Chloride Level 107 mmol/L Carbon Dioxide Level 28 mmol/L Anion Gap 5.0 mmol/L Blood Urea Nitrogen 17 mg/dl Creatinine 1.20 mg/dl Est Creatinine Clear Calc Drug Dose 56.0 ml/min Estimated GFR () 67.7 Estimated GFR (Non- 58.4 BUN/Creatinine Ratio 14.4 Random Glucose 96 mg/dl Calcium Level 8.3 mg/dl Troponin I 0.220 ng/ml Triglycerides Level 187 mg/dl Cholesterol Level 185 mg/dl HDL Cholesterol 52 mg/dl LDL Cholesterol, Calculated 96 mg/dl VLDL Cholesterol, Calculated 37 mg/dl Cholesterol/HDL Ratio 3.6 Prothrombin Time 10.4 SECONDS Prothromb Time International Ratio 1.0 Activated Partial Thromboplast Time 26.8 SECONDS Partial Thromboplastin Ratio 1.0 Urine Color YELLOW Urine Appearance CLEAR Urine pH 5.0 Urine Specific [place] 1.015 Urine Protein NEG Urine Glucose (UA) NEG Urine Ketones NEG Urine Occult Blood NEG Urine Nitrite NEG Urine Bilirubin NEG Urine Urobilinogen NEG Urine Leukocyte Esterase NEG Kaolin Activated Coagulation Time 157 SECONDS Test 11/19/16 10:15 11/19/16 11:15 11/19/16 12:35 11/19/16 12:45 Kaolin Activated Coagulation Time 240 SECONDS 384 SECONDS White Blood Count 9.97 K/uL Red Blood Count 5.31 M/uL Hemoglobin 16.7 g/dL Hematocrit 48.0 % Mean Corpuscular Volume 90.4 fL Mean Corpuscular Hemoglobin 31.5 pg Mean Corpuscular Hemoglobin Concent 34.8 g/dl Platelet Count 178 K/uL Mean Platelet Volume 9.9 fL Neutrophils (%) (Auto) 68.1 % Lymphocytes (%) (Auto) 22.8 % Monocytes (%) (Auto) 6.8 % Eosinophils (%) (Auto) 1.9 % Basophils (%) (Auto) 0.2 % Neutrophils # (Auto) 6.79 K/uL Lymphocytes # (Auto) 2.27 K/uL Monocytes # (Auto) 0.68 K/uL Eosinophils # (Auto) 0.19 K/uL Basophils # (Auto) 0.02 K/uL RDW Standard Deviation 48.8 fL RDW Coefficient of Variation 14.7 % Immature Granulocyte % (Auto) 0.2 % Immature Granulocyte # (Auto) 0.02 K/uL Sodium Level 139 mmol/L Potassium Level 4.0 mmol/L Chloride Level 105 mmol/L Carbon Dioxide Level 26 mmol/L Anion Gap 8.0 mmol/L Blood Urea Nitrogen 17 mg/dl Creatinine 1.00 mg/dl Est Creatinine Clear Calc Drug Dose 66.7 ml/min Estimated GFR () 84.4 Estimated GFR (Non- 72.8 BUN/Creatinine Ratio 16.6 Random Glucose 107 mg/dl Calcium Level 8.4 mg/dl Creatine Kinase MB Ratio Diagnostic Results ECG had ST elevations in V5-V6 and I and II Assessment & Plan 76 yo male with comorbidities of (1) BPH seems to have history of (2) CAD with stable angina admitted with (4) NSTEMI found to have OM1 90% occlusion not amenable to PCI or stent. His cath complicated by ? spasm/acute occlusion and (5 ) STEMI which is subsiding clinically. Appreciate Dr Carroll input. The patient is not a candidate for CABG (single vessel disease). Risk of continued attempts to cannulate the OM1 overwight the benefit per cardiology. He will be treated medically and it seems he responded well to medications. The NTG is being titrated down Neurologic lorazepam 0.5 mg PRN Q6 anxiety morphine sulfate 2 mg Q2 PRN CP Respiratory O2 via NC 2-4 lit/min titrate to SPO2>98% Cardiovascular per cardiology Integrillin drip per protocol total 18 hours NTG drip titrate to CP ASA 81 mg PO daily ATORVASTATIN 80 mg PO daily metoprolol 25 mg PO BID. If he tolerates would increase to target HR low 60s ( increase to 37.5 mg BID lisinopril 5 mg PO daily GI diet as tolerated no need for GI prophylaxis continue his vitamin C supplement Renal FU electrolytes and replete in am IVF post cath 125 ml/hr for 750 ml maintian UO 0.5-1 ml/Kg BW-hr continue Flomax home dose ID no foci of infection will monitor endocrine no history of DM DVT prophylaxis he is on integrillin Will start heparin or lovenox SC once integrillin is stopped Patient is acutely ill and has an STEMI. Will monitor in MICU for complications of [place] (arrhythmia and Valvular disease) He is full code Spent 50 minutes of CC time with patient and family
--- NOTE | 2016-11-19 19:12 | Progress Note ---
Internal Med Progress Note Date of Service: November 19, 2016. Provider Documentation: SUBJECTIVE: complain of minimum chest discomfort with feeling of constriction around his neck and jaw no SOB OBJECTIVE: Vital Signs-as noted below Exam: General-no sign of distress Eyes-sclera non icteric Lungs-CTA Heart-regular S1/S2 Abdomen-soft, non tender Extremities-no lower ext edema Neuro-AAO x3, no focal deficit Lab data as noted below. ASSESSMENT & PLAN: NSTEMI: presented with chest pain /TODD /reduced exercise tolerance Initial troponin was negative , EKG showed no ST-T wave changes developed troponin elevated with serial labs check AM EKG showed T wave inversion in lateral leads pt was taken for Diagnostic /intervention cardiac cath today found to have diffuse CAD during intervention-developed complete occlusion of culprit vessel with ST elevation , pt developed chest pain given high risk for Coronary artery perforation with further attempt medical management was found to most beneficial in this case pt was transferred to ICU with Integrilin gtt, Nitro gtt will be continued with Aspirin , Plavix, beta césar ,statin and ACEI ECHO ordered close monitoring of hemodynamics in ICU overnight Cardiology following closely DVT PROPHYLAXIS on Integrilin gtt FULL CODE DISPOSITION To home when medically stable will need referral to Cardiac rehab Medicine follow up with Dr Galo will need close follow up with Cardiology as out patient Vital Signs: Date Time Temp Pulse Resp B/P Pulse Ox O2 Delivery O2 Flow Rate FiO2 11/19/16 18:00 36.6 59 22 115/62 95 Room Air 4.0 11/19/16 18:00 64 22 115/62 95 11/19/16 17:53 58 24 115/62 96 Nasal Cannula 2.0 11/19/16 17:00 36.6 61 17 113/70 99 11/19/16 16:53 59 20 113/70 99 Room Air 11/19/16 16:00 99 Nasal Cannula 11/19/16 16:00 36.6 61 17 118/77 99 11/19/16 16:00 36.6 63 17 118/77 99 Room Air 4.0 11/19/16 16:00 36.6 63 17 118/77 99 Room Air 4.0 11/19/16 15:59 61 17 95/47 99 Room Air 11/19/16 15:00 67 22 95/47 98 11/19/16 15:00 36.6 64 12 95/47 97 Nasal Cannula 4.0 5/31/17 14:00 36.6 58 13 124/73 97 Nasal Cannula 4.0 11/19/16 13:30 36.6 58 13 105/68 97 Nasal Cannula 4.0 11/19/16 13:00 36.6 62 16 115/76 95 Nasal Cannula 4.0 11/19/16 12:45 36.6 61 16 138/87 97 Nasal Cannula 4.0 11/19/16 12:30 36.6 59 13 145/98 92 Room Air 11/19/16 12:15 36.6 62 20 148/86 92 Room Air 11/19/16 11:55 58 16 163/106 98 Nasal Cannula 4 11/19/16 11:40 65 16 169/97 98 Nasal Cannula 4 11/19/16 11:35 68 16 98 Nasal Cannula 6 11/19/16 11:30 77 16 169/100 98 Nasal Cannula 6 11/19/16 11:25 70 16 166/100 98 Nasal Cannula 6 11/19/16 08:00 97 Room Air 11/19/16 07:30 36.5 55 18 112/68 97 Room Air 11/19/16 04:00 120/65 11/19/16 04:00 96 Room Air 11/19/16 03:13 36.7 64 19 94/62 96 Room Air 11/19/16 00:00 97 Room Air 11/18/16 23:20 36.6 57 18 116/68 97 Room Air 11/18/16 20:00 36.7 58 120/64 96 Room Air 11/18/16 20:00 96 Room Air Lab Results: Results Past 24 Hours Test 11/19/16 00:00 11/19/16 00:36 11/19/16 04:03 11/19/16 08:22 Range/Units Creatine Kinase MB Ratio 0-3.0 Creatine Kinase MB 1.9 0.5-3.6 ng/ml Troponin I 0.262 0.220 0-0.045 ng/ml White Blood Count 7.15 4.8-10.8 K/uL Red Blood Count 5.07 4.7-6.1 M/uL Hemoglobin 15.3 14.0-18.0 g/dL Hematocrit 45.8 42-52 % Mean Corpuscular Volume 90.3 80-100 fL Mean Corpuscular Hemoglobin 30.2 25-34 pg Mean Corpuscular Hemoglobin Concent 33.4 32-36 g/dl Platelet Count 185 130-400 K/uL Mean Platelet Volume 9.5 7.4-10.4 fL Neutrophils (%) (Auto) 53.8 % Lymphocytes (%) (Auto) 32.7 % Monocytes (%) (Auto) 9.7 % Eosinophils (%) (Auto) 3.1 % Basophils (%) (Auto) 0.4 % Neutrophils # (Auto) 3.85 1.4-6.5 K/uL Lymphocytes # (Auto) 2.34 1.2-3.4 K/uL Monocytes # (Auto) 0.69 0.11-0.59 K/uL Eosinophils # (Auto) 0.22 0-0.5 K/uL Basophils # (Auto) 0.03 0-0.2 K/uL RDW Standard Deviation 47.7 36.4-46.3 fL RDW Coefficient of Variation 14.5 11.5-14.5 % Immature Granulocyte % (Auto) 0.3 % Immature Granulocyte # (Auto) 0.02 0.00-0.02 K/uL Sodium Level 140 136-145 mmol/L Potassium Level 4.1 3.5-5.1 mmol/L Chloride Level 107 98-107 mmol/L Carbon Dioxide Level 28 21-32 mmol/L Anion Gap 5.0 3-11 mmol/L Blood Urea Nitrogen 17 7-18 mg/dl Creatinine 1.20 0.60-1.40 mg/dl Est Creatinine Clear Calc Drug Dose 56.0 ml/min Estimated GFR () 67.7 Estimated GFR (Non- 58.4 BUN/Creatinine Ratio 14.4 10-20 Random Glucose 96 70-99 mg/dl Calcium Level 8.3 8.5-10.1 mg/dl Triglycerides Level 187 0-150 mg/dl Cholesterol Level 185 0-200 mg/dl HDL Cholesterol 52 mg/dl LDL Cholesterol, Calculated 96 mg/dl VLDL Cholesterol, Calculated 37 mg/dl Cholesterol/HDL Ratio 3.6 Prothrombin Time 10.4 9.0-12.0 SECONDS Prothromb Time International Ratio 1.0 0.9-1.1 Activated Partial Thromboplast Time 26.8 21.0-31.0 SECONDS Partial Thromboplastin Ratio 1.0 Test 11/19/16 09:05 11/19/16 09:57 11/19/16 10:15 11/19/16 11:15 Range/Units Urine Color YELLOW Urine Appearance CLEAR CLEAR Urine pH 5.0 4.5-7.5 Urine Specific [place] 1.015 1.000-1.030 Urine Protein NEG NEG Urine Glucose (UA) NEG NEG Urine Ketones NEG NEG Urine Occult Blood NEG NEG Urine Nitrite NEG NEG Urine Bilirubin NEG NEG Urine Urobilinogen NEG NEG Urine Leukocyte Esterase NEG NEG Kaolin Activated Coagulation Time 157 240 384 94-140 SECONDS Test 11/19/16 12:35 Range/Units White Blood Count 9.97 4.8-10.8 K/uL Red Blood Count 5.31 4.7-6.1 M/uL Hemoglobin 16.7 14.0-18.0 g/dL Hematocrit 48.0 42-52 % Mean Corpuscular Volume 90.4 80-100 fL Mean Corpuscular Hemoglobin 31.5 25-34 pg Mean Corpuscular Hemoglobin Concent 34.8 32-36 g/dl Platelet Count 178 130-400 K/uL Mean Platelet Volume 9.9 7.4-10.4 fL Neutrophils (%) (Auto) 68.1 % Lymphocytes (%) (Auto) 22.8 % Monocytes (%) (Auto) 6.8 % Eosinophils (%) (Auto) 1.9 % Basophils (%) (Auto) 0.2 % Neutrophils # (Auto) 6.79 1.4-6.5 K/uL Lymphocytes # (Auto) 2.27 1.2-3.4 K/uL Monocytes # (Auto) 0.68 0.11-0.59 K/uL Eosinophils # (Auto) 0.19 0-0.5 K/uL Basophils # (Auto) 0.02 0-0.2 K/uL RDW Standard Deviation 48.8 36.4-46.3 fL RDW Coefficient of Variation 14.7 11.5-14.5 % Immature Granulocyte % (Auto) 0.2 % Immature Granulocyte # (Auto) 0.02 0.00-0.02 K/uL Sodium Level 139 136-145 mmol/L Potassium Level 4.0 3.5-5.1 mmol/L Chloride Level 105 98-107 mmol/L Carbon Dioxide Level 26 21-32 mmol/L Anion Gap 8.0 3-11 mmol/L Blood Urea Nitrogen 17 7-18 mg/dl Creatinine 1.00 0.60-1.40 mg/dl Est Creatinine Clear Calc Drug Dose 66.7 ml/min Estimated GFR () 84.4 Estimated GFR (Non- 72.8 BUN/Creatinine Ratio 16.6 10-20 Random Glucose 107 70-99 mg/dl Calcium Level 8.4 8.5-10.1 mg/dl Total Creatine Kinase 64 39-308 U/L Creatine Kinase MB 1.5 0.5-3.6 ng/ml Creatine Kinase MB Ratio 2.3 0-3.0 Troponin I 0.159 0-0.045 ng/ml Microbiology Results 11/19/16 MRSA DNA Surveillance Screen - Final, Complete Specimen Positive for MRSA by DNA Probe
[2016-11-19] MEDS: TAMSULOSIN HCL 0.4 MG CAP PO SCH (20:56)
[2016-11-19] MEDS ORDERED: METOPROLOL TARTRATE 25 MG TAB PO SCH (21:00)
[2016-11-19 21:55] LABS: CKMB/CK RATIO 13.5 (0-3.0)
[2016-11-20] VITALS (13 sets, daily range): BP systolic 98–135; BP diastolic 8–83; PULSE 56–71; TEMP 36.6–37.5; O2SAT 94–99
[2016-11-20] MEDS: SODIUM CHLORIDE 0.9% 1000ML 1,000 ML IV SCH (04:15)
[2016-11-20 05:01] LABS: BASO % 0.1 %; BASO ABS # 0.01 K/uL (0-0.2); COMPLETE YES; EOS % 0.7 %; HEMATOCRIT 43.5 % (42-52); IG% 0.3 %; MEAN CELL VOLUME 91.4 fL (80-100); MEAN CORPUSCULAR HGB CONC 32.9 g/dl (32-36); MEAN PLATELET VOLUME 9.7 fL (7.4-10.4); MONO % 6.9 %; PLATELET COUNT 169 K/uL (130-400); RED BLOOD COUNT 4.76 M/uL (4.7-6.1); WHITE BLOOD COUNT 11.97 K/uL (4.8-10.8)
[2016-11-20 05:34] LABS: BUN/CREATININE RATIO 13.2 (10-20); CALCIUM 7.7 mg/dl (8.5-10.1); CREATININE 1.2 mg/dl (0.60-1.40); MAGNESIUM 2.1 mg/dl (1.8-2.4); POTASSIUM 4.3 mmol/L (3.5-5.1)
[2016-11-20 05:56] LABS: CKMB/CK RATIO 12.3 (0-3.0); PHOSPHORUS 2.7 mg/dl (2.5-4.9)
[2016-11-20] MEDS ORDERED: Integrelin infusion --> STOP ORDER ONE (06:00)
[2016-11-20] MEDS ORDERED: TRAMADOL HCL 50 MG TAB PO PRN (06:45)
--- NOTE | 2016-11-20 07:01 | CARDIAC CATH REPORT ---
PROCEDURE: 1. Left heart catheterization. 2. Coronary angiography. 3. Left ventriculography. HISTORY OF PRESENT ILLNESS: The patient is a 76-year-old male who presented with classic angina symptoms and have an elevation in his cardiac markers. PROCEDURE SUMMARY: After informed consent was obtained, the patient was taken to the cardiac catheterization lab where access was obtained using a retrograde Seldinger technique from the right radial artery. Preformed 5-Canadian diagnostic catheters were utilized for the coronary angiograms. A 5-Canadian pigtail catheter was utilized for the left ventriculogram. Following the procedure, the patient underwent coronary intervention and then was returned to his room in stable condition. CORONARY ANGIOGRAPHY: Selective injections of the left coronary artery reveal the left circumflex artery to be large and hyperdominant. The left main trunk is widely patent. The left circumflex artery reveals a large first marginal branch which bifurcates and supplies the majority of the lateral myocardium. After the branch point, there is a high grade 90% stenosis in this artery. The remainder of the left circumflex artery including the PDA is widely patent. The LAD has unusual anatomy. There is a large ramus artery which then supplies a large first septal mutuel cashier. The main LAD; however curves left and then bifurcates into a diagonal and a LAD that does not extend to the apex of the heart. This LAD is small in caliber. After the bifurcation of the diagonal, there is a 70% stenosis. The right coronary artery is nondominant and is widely patent. LEFT VENTRICULOGRAM: The left ventricle is of normal sinus with normal systolic function. The estimated left ventricular ejection fraction is 60%. The mitral valve is competent. The LVEDP is 3. SUMMARY: The patient has a high grade stenosis in the marginal branch in the left circumflex artery, which I believe is the index artery. The LAD anatomy is unusual and it appears that the main LAD does have some significant disease; however, it is small in caliber and I think it would be a difficult intervention for that reason. There is normal LV function. RECOMMENDATIONS: For review of the cath films by interventional cardiology with the thought up putting a stent in the marginal from the circumflex artery and treating the LAD medically.
[2016-11-20] MEDS: MoRPHine SULFATE 2 MG/ML CARP IM PRN ×2 (07:41→22:11)
--- NOTE | 2016-11-20 08:54 | Progress Note ---
Internal Med Progress Note Date of Service: Nov 20, 2016. Provider Documentation: SUBJECTIVE: feels tired as was unable to sleep last night had intermittent chest pain feeling of his throat closing has been an ongoing discomfort no complain of chest pain or cough no fever or chills OBJECTIVE: Vital Signs-as noted below Exam: General-no sign of distress Eyes-sclera non icteric Lungs-CTA Heart-regular S1/S2 Abdomen-soft, non tender Extremities-no lower ext edema Neuro-AAO x3, no focal deficit Lab data as noted below. ASSESSMENT & PLAN: NSTEMI: presented with chest pain /TODD /reduced exercise tolerance underwent cardiac cath found to have diffuse CAD during intervention-developed complete occlusion of culprit vessel with ST elevation , pt developed chest pain given high risk for Coronary artery perforation with further attempt medical management was found to most beneficial in this case pt remained in ICU Integrilin gtt continued for 18 hrs , Nitro gtt on Aspirin , Plavix, beta césar ,statin and ACEI troponin elevated 28 -due to post NSTEMI /cardiac cath Cardiology following closely pt continues to have intermittent chest discomfort /heaviness /ongoing angina on Nitro gtt ordered for PRN IV Morphine repeat ECHO done this AM SORE THROAT : Has been a chronic issue since last Apr 2016 was treated with Z pack , prednisone taper , nasal spray over the counter agents no improvement of symptoms mentions that he always feels his throat been closing on him denies of any problem with swallowing pt was asked to be evaluated by ENT by Family Physician pt counselled will need ENT eval as out patient after recovery form acute ND DVT PROPHYLAXIS on Integrilin gtt FULL CODE DISPOSITION To home when medically stable will need referral to Cardiac rehab Medicine follow up with Dr Galo will need close follow up with Cardiology as out patient Vital Signs: Date Time Temp Pulse Resp B/P (MAP) Pulse Ox O2 Delivery O2 Flow Rate FiO2 11/20/16 08:00 97 Nasal Cannula 2.0 11/20/16 08:00 37.0 56 12 111/8 (42) 97 Nasal Cannula 2.0 11/20/16 06:00 12 126/83 (97) 95 Nasal Cannula 2.0 11/20/16 04:00 37.0 63 12 122/68 (86) 99 Nasal Cannula 2.0 11/20/16 04:00 99 Nasal Cannula 2.0 11/20/16 02:00 62 18 115/62 (79) 96 Nasal Cannula 2.0 11/20/16 00:01 36.8 58 12 98/53 (68) 98 Nasal Cannula 2.0 11/19/16 23:59 99 Nasal Cannula 2.0 11/19/16 22:00 58 13 115/59 (77) 96 Nasal Cannula 2.0 11/19/16 20:00 99 Nasal Cannula 2.0 11/19/16 20:00 36.7 58 16 111/59 (76) 96 Nasal Cannula 2.0 11/19/16 18:00 36.6 59 22 115/62 (79) 95 Room Air 4.0 11/19/16 18:00 64 22 115/62 95 11/19/16 17:53 58 24 115/62 (79) 96 Nasal Cannula 2.0 11/19/16 17:00 36.6 61 17 113/70 99 11/19/16 16:53 59 20 113/70 (84) 99 Room Air 11/19/16 16:00 99 Nasal Cannula 11/19/16 16:00 36.6 61 17 118/77 99 11/19/16 16:00 36.6 63 17 118/77 (91) 99 Room Air 4.0 11/19/16 16:00 36.6 63 17 118/77 (91) 99 Room Air 4.0 11/19/16 15:59 61 17 95/47 (63) 99 Room Air 11/19/16 15:00 67 22 95/47 98 11/19/16 15:00 36.6 64 12 95/47 (63) 97 Nasal Cannula 4.0 11/19/16 14:00 36.6 58 13 124/73 (90) 97 Nasal Cannula 4.0 11/19/16 13:30 36.6 58 13 105/68 (80) 97 Nasal Cannula 4.0 11/19/16 13:00 36.6 62 16 115/76 (89) 95 Nasal Cannula 4.0 11/19/16 12:45 36.6 61 16 138/87 (104) 97 Nasal Cannula 4.0 11/19/16 12:30 36.6 59 13 145/98 (114) 92 Room Air 11/19/16 12:15 36.6 62 20 148/86 (106) 92 Room Air 11/19/16 11:55 58 16 163/106 98 Nasal Cannula 4 11/19/16 11:40 65 16 169/97 98 Nasal Cannula 4 11/19/16 11:35 68 16 98 Nasal Cannula 6 11/19/16 11:30 77 16 169/100 98 Nasal Cannula 6 11/19/16 11:25 70 16 166/100 98 Nasal Cannula 6 Lab Results: Results Past 24 Hours Test 11/19/16 09:05 11/19/16 09:57 11/19/16 10:15 11/19/16 11:15 Range/Units Urine Color YELLOW Urine Appearance CLEAR CLEAR Urine pH 5.0 4.5-7.5 Urine Specific [place] 1.015 1.000-1.030 Urine Protein NEG NEG Urine Glucose (UA) NEG NEG Urine Ketones NEG NEG Urine Occult Blood NEG NEG Urine Nitrite NEG NEG Urine Bilirubin NEG NEG Urine Urobilinogen NEG NEG Urine Leukocyte Esterase NEG NEG [place] Activated Coagulation Time 157 240 384 94-140 SECONDS Test 11/19/16 12:35 11/19/16 21:01 11/20/16 04:46 Range/Units White Blood Count 9.97 11.97 4.8-10.8 K/uL Red Blood Count 5.31 4.76 4.7-6.1 M/uL Hemoglobin 16.7 14.3 14.0-18.0 g/dL Hematocrit 48.0 43.5 42-52 % Mean Corpuscular Volume 90.4 91.4 80-100 fL Mean Corpuscular Hemoglobin 31.5 30.0 25-34 pg Mean Corpuscular Hemoglobin Concent 34.8 32.9 32-36 g/dl Platelet Count 178 169 130-400 K/uL Mean Platelet Volume 9.9 9.7 7.4-10.4 fL Neutrophils (%) (Auto) 68.1 82.0 % Lymphocytes (%) (Auto) 22.8 10.0 % Monocytes (%) (Auto) 6.8 6.9 % Eosinophils (%) (Auto) 1.9 0.7 % Basophils (%) (Auto) 0.2 0.1 % Neutrophils # (Auto) 6.79 9.83 1.4-6.5 K/uL Lymphocytes # (Auto) 2.27 1.20 1.2-3.4 K/uL Monocytes # (Auto) 0.68 0.82 0.11-0.59 K/uL Eosinophils # (Auto) 0.19 0.08 0-0.5 K/uL Basophils # (Auto) 0.02 0.01 0-0.2 K/uL RDW Standard Deviation 48.8 49.0 36.4-46.3 fL RDW Coefficient of Variation 14.7 14.5 11.5-14.5 % Immature Granulocyte % (Auto) 0.2 0.3 % Immature Granulocyte # (Auto) 0.02 0.03 0.00-0.02 K/uL Sodium Level 139 142 136-145 mmol/L Potassium Level 4.0 4.3 3.5-5.1 mmol/L Chloride Level 105 105 98-107 mmol/L Carbon Dioxide Level 26 32 21-32 mmol/L Anion Gap 8.0 5.0 3-11 mmol/L Blood Urea Nitrogen 17 16 7-18 mg/dl Creatinine 1.00 1.20 0.60-1.40 mg/dl Est Creatinine Clear Calc Drug Dose 66.7 55.6 ml/min Estimated GFR () 84.4 67.7 Estimated GFR (Non- 72.8 58.4 BUN/Creatinine Ratio 16.6 13.2 10-20 Random Glucose 107 120 70-99 mg/dl Calcium Level 8.4 7.7 8.5-10.1 mg/dl Total Creatine Kinase 64 1129 1846 39-308 U/L Creatine Kinase MB 1.5 152.6 226.5 0.5-3.6 ng/ml Creatine Kinase MB Ratio 2.3 13.5 12.3 0-3.0 Troponin I 0.159 10.300 28.500 0-0.045 ng/ml Activated Partial Thromboplast Time 26.5 21.0-31.0 SECONDS Partial Thromboplastin Ratio 1.0 Phosphorus Level 2.7 2.5-4.9 mg/dl Magnesium Level 2.1 1.8-2.4 mg/dl Microbiology Results 11/19/16 MRSA DNA Surveillance Screen - Final, Complete Specimen Positive for MRSA by DNA Probe
[2016-11-20] MEDS ORDERED: ASPIRIN 81 MG ECTAB PO SCH (09:00)
[2016-11-20] MEDS ORDERED: METOPROLOL TARTRATE 25 MG TAB PO STA (09:17)
[2016-11-20] MEDS ORDERED: ENOXAPARIN 100 MG/1ML SYR SQ SCH (09:30)
--- NOTE | 2016-11-20 09:31 | CARDIOLOGY PROGRESS NOTE ---
DATE: 11/20/2016 DATE: 11/20/2016. FOLLOW-UP VISIT SUBJECTIVE: The patient is a 76-year-old who presented with a non-STEMI. Yesterday he underwent a cardiac catheterization and was found to have a high grade stenosis of the left circumflex marginal. Attempt was made at PCI which was unsuccessful and the patient had a controlled infarct yesterday. His troponins have peaked at 28.5. He was pain free through most of the night until this morning his nitroglycerin was weaned and he began to have additional chest pain. His nitroglycerin IV was increased and he is now comfortable. An echocardiogram is planned for today. I will review that when it is completed. OBJECTIVE: VITAL SIGNS: Blood pressure is 111/80, pulse is regular at 56. GENERAL: He is afebrile. HEAD, EYES, EARS, NOSE, AND THROAT: He is normocephalic. Pupils are equal and reactive to light. Extraocular muscles are intact bilaterally. NECK: The neck veins are flat. Carotids have good upstrokes bilaterally without bruits. Thyroid is nonpalpable. RESPIRATORY: Breath sounds equal bilaterally and clear to auscultation. CARDIOVASCULAR: Heart has a regular rhythm. There are no cardiac rubs or murmurs. GASTROINTESTINAL: Abdomen is soft, nontender without organomegaly. EXTREMITIES: The catheterization site in the right wrist is healing appropriately. There is no edema, cyanosis or digital clubbing. NEUROLOGIC: Grossly intact. SKIN: Warm to touch. LYMPH NODES: Negative to palpation. LABORATORY DATA: Creatinine is 1.2, potassium is 4.3, hemoglobin is 14.3, platelets are 169, WBC count is 11.97. EKG reveals a sinus bradycardia with ST segment elevation in the inferior leads and evolving inferior posterior wall infarct. IMPRESSIONS: 1. Inferior posterior wall infarct. 2. Failed percutaneous coronary intervention. RECOMMENDATIONS: I would continue the nitroglycerin drip. I will increase his metoprolol to 50 mg twice daily, Plavix 75 mg daily will be added. He will also remain on Lovenox. We will try to ambulate him today. Further evaluation and treatment following the above. MTDD
[2016-11-20] MEDS: MULTIVITAMIN TAB PO SCH (09:44)
[2016-11-20] MEDS: LISINOPRIL 5 MG TAB PO SCH (09:44)
[2016-11-20] MEDS: ASPIRIN 81 MG ECTAB PO SCH (09:45)
[2016-11-20] MEDS: ATORVASTATIN 40 MG TAB PO SCH (09:45)
[2016-11-20] MEDS: CLOPIDOGREL BISULFATE 75 MG TAB PO SCH (09:45)
[2016-11-20] MEDS: ASCORBIC ACID 500 MG TAB PO SCH (09:46)
[2016-11-20] MEDS: ENOXAPARIN 100 MG/1ML SYR SQ SCH ×2 (10:16→22:09)
--- NOTE | 2016-11-20 10:45 | Critical Care Progress Note ---
Critical Care Progress Note Date of Service Nov 20, 2016. ICU Day ICU Day Number: [address] Crump Subjective 76 yo male with comorbidities of (1) BPH seems to have history of (2) CAD with stable angina admitted with (4) NSTEMI found to have OM1 90% occlusion not amenable to PCI or stent. His cath complicated by ? spasm/acute occlusion and (5 ) STEMI and Cardiology recommends medical therapy for now. The patient was having CP with diaphoresis last afternoon. This responded to NTG drip up to 18 mcg and then Morphine sulfate and O2 got it down to 5 mcg overnight and early into the morning the pain recurred and he says it was 5-6/ 10. He was resistant to morphine and received ultram with no benefit. He thought morphine just masks the pain. It was explained to him that it acutally also helps with dyspnea anxiety and oxygenation in small doses and then he agreed to it. Subsequently CP imprvoed and it is less than 2. he walked in the unit with no change in pain. What bothers him is a throat neck pain that starts bilaterally deep to mastoid areas in the neck ob both sides but more so on the right. He says it radiated to the forehead and thinks it is his sinuses. He has been struggling with this for 6 months. To him it gets worse with the CP and he has sought care for it including sudafed and antibiotics to no avail. His PCP was to refer him to ENT. He does not complain of SOB now or naueas. he says he was nauseous in the am. He feels tired a little and has no other complaints. Objective General Appearance: well-appearing, mild distress Head: normocephalic, atraumatic Eyes: PERRLA, no discharge ENT: normal sinus exam Neck: normal range of motion, supple Respiratory: clear to auscultation Cardiovasular: regular rate/rhythm, no M/G/R No rub heard. Abdomen: non tender, normal bowel sounds, no rebound, no masses, no guarding Genitourinary - Male: external genitalia normal Back: normal inspection Extremities: no edema clubbing or cyanosis. Pulses: carotid (R) (2+), carotid (L) (2+), dorsalis pedis (R) (2+), dorsalis pedis (L) (2+), posterior tibial (R), posterior tibial (L). Neuro: alert, oriented x 3, normal motor exam Current SOFA Score SOFA Score Response (Comments) Value Platelets (x10) > 150 0 Bilirubin (mg/dL) < 1.2 0 Britt Coma Score 15 0 Level of Hypotension No Hypotension 0 Creatinine (mg/dL) 1.2 - 1.9 1 Total 1 Previous SOFA Scores 1 Assessment & Plan (1) BPH s (2) CAD with (3) chest pain stable angina admitted with (4) NSTEMI found to have OM1 90% occlusion not amenable to PCI or stent. His cath complicated by ? spasm/acute occlusion and (5) STEMI Neurologic lorazepam 0.5 mg PRN Q6 anxiety morphine sulfate 2 mg Q2 PRN CP Respiratory O2 via NC 2-4 lit/min titrate to SPO2>98% Cardiovascular It is very likely that his throat neck head pain is related to angina radiating there. We will obtain CT sinuses for completion of workup. per cardiology NTG drip titrate to CP ASA 81 mg PO daily ATORVASTATIN 80 mg PO daily metoprolol 25 mg PO BID. If he tolerates would increase to target HR low 60s ( increase to 37.5 mg BID) His HR is 52 so we will stay on 25 today. lisinopril 5 mg PO daily plavix 75 mg daily added after integrillin is done GI diet as tolerated no need for GI prophylaxis continue his vitamin C supplement Renal FU electrolytes and replete IVF post cath 125 ml/hr for 750 ml. his UO was 0.47 ml/ kg BW-hr yesterday but he already is above 0.5 ml/Kg BW-hr today maintian UO 0.5-1 ml/Kg BW-hr continue Flomax home dose ID no foci of infection will monitor endocrine no history of DM DVT prophylaxis heparin SCafter integrillin is stopped Patient is acutely ill and has an STEMI. Will monitor in MICU for complications of SD (arrhythmia and Valvular disease) He is full code Spent 45 minutes of CC time with patient and family Consults & Procedures Consultants: cardiology Procedures: cardiac cath Data Medications: Current Inpatient Medications Medications (Trade) Dose Ordered Sig/Sergei Route Start Time Stop Time Status Last Admin Dose Admin Miscellaneous (Iv Fluids Completed) 1 ea PRN PRN N/A 11/18/16 14:00 11/18/17 13:59 Acetaminophen (Tylenol Tab) 650 mg Q4H PRN PO 11/18/16 14:30 12/18/16 14:29 Ondansetron HCl (Zofran Inj) 4 mg Q6H PRN IV 11/18/16 14:30 12/18/16 14:29 11/20/16 07:41 4 MG Nitroglycerin (Nitrostat Tab) 0.4 mg UD PRN SL 11/18/16 14:30 12/18/16 14:29 Aspirin (Ecotrin Tab) 81 mg DAILY PO 11/19/16 09:00 12/19/16 08:59 11/20/16 09:45 81 MG Multivitamins (Multivitamin Tab) 1 tab DAILY PO 11/19/16 09:00 12/19/16 08:59 11/20/16 09:44 1 TAB Ascorbic Acid (Vitamin C Tab) 1,000 mg DAILY PO 11/19/16 09:00 12/19/16 08:59 11/20/16 09:46 1,000 MG Tamsulosin HCl (Flomax Cap) 0.4 mg HS PO 11/19/16 21:00 12/19/16 20:59 11/19/16 20:56 0.4 MG Atropine Sulfate (Atropine Sulfate 0.1MG/Ml Inj) 0.5 mg ONE PRN IV 11/19/16 12:15 12/19/16 12:14 Lisinopril (Zestril Tab) 5 mg QAM PO 11/20/16 09:00 12/20/16 08:59 11/20/16 09:44 5 MG Lorazepam 0.5 mg/ Syringe 1 ml @ 1 mls/min Q6H PRN IV 11/19/16 12:15 12/19/16 12:14 11/19/16 14:49 1 MLS/MIN Atorvastatin Calcium (Lipitor Tab) 80 mg QAM PO 11/20/16 09:00 12/20/16 08:59 11/20/16 09:45 80 MG Nitroglycerin/ Dextrose 250 ml @ 0 mls/hr Q0M PRN IV 11/19/16 12:15 12/19/16 12:14 Morphine Sulfate (MoRPHine SULFATE INJ) 2 mg Q2H PRN IM 11/19/16 12:45 11/21/16 12:00 11/20/16 07:41 2 MG Lorazepam (Ativan Inj) 0.5 mg Q6H PRN IV 11/19/16 13:30 12/19/16 13:29 Tramadol HCl (Ultram Tab) 25 mg Q6H PRN PO 11/20/16 06:45 12/20/16 06:44 11/20/16 06:43 25 MG Metoprolol Tartrate (Lopressor Tab) 50 mg Q12 PO 11/20/16 09:00 12/19/16 20:59 Future hold Clopidogrel Bisulfate (plAVix TAB) 75 mg QAM PO 11/20/16 09:00 12/20/16 08:59 11/20/16 09:45 75 MG Enoxaparin Sodium (Lovenox Inj) 90 mg Q12H SQ 11/20/16 10:00 12/20/16 09:59 Vital Signs: Date Time Temp Pulse Resp B/P (MAP) Pulse Ox O2 Delivery O2 Flow Rate FiO2 11/20/16 08:00 97 Nasal Cannula 2.0 11/20/16 08:00 37.0 56 12 111/8 (42) 97 Nasal Cannula 2.0 11/20/16 06:00 12 126/83 (97) 95 Nasal Cannula 2.0 11/20/16 04:00 37.0 63 12 122/68 (86) 99 Nasal Cannula 2.0 11/20/16 04:00 99 Nasal Cannula 2.0 11/20/16 02:00 62 18 115/62 (79) 96 Nasal Cannula 2.0 11/20/16 00:01 36.8 58 12 98/53 (68) 98 Nasal Cannula 2.0 11/19/16 23:59 99 Nasal Cannula 2.0 11/19/16 22:00 58 13 115/59 (77) 96 Nasal Cannula 2.0 11/19/16 20:00 99 Nasal Cannula 2.0 11/19/16 20:00 36.7 58 16 111/59 (76) 96 Nasal Cannula 2.0 11/19/16 18:00 36.6 59 22 115/62 (79) 95 Room Air 4.0 11/19/16 18:00 64 22 115/62 95 11/19/16 17:53 58 24 115/62 (79) 96 Nasal Cannula 2.0 11/19/16 17:00 36.6 61 17 113/70 99 11/19/16 16:53 59 20 113/70 (84) 99 Room Air 11/19/16 16:00 99 Nasal Cannula 11/19/16 16:00 36.6 61 17 118/77 99 11/19/16 16:00 36.6 63 17 118/77 (91) 99 Room Air 4.0 11/19/16 16:00 36.6 63 17 118/77 (91) 99 Room Air 4.0 11/19/16 15:59 61 17 95/47 (63) 99 Room Air 11/19/16 15:00 67 22 95/47 98 11/19/16 15:00 36.6 64 12 95/47 (63) 97 Nasal Cannula 4.0 11/19/16 14:00 36.6 58 13 124/73 (90) 97 Nasal Cannula 4.0 11/19/16 13:30 36.6 58 13 105/68 (80) 97 Nasal Cannula 4.0 11/19/16 13:00 36.6 62 16 115/76 (89) 95 Nasal Cannula 4.0 11/19/16 12:45 36.6 61 16 138/87 (104) 97 Nasal Cannula 4.0 11/19/16 12:30 36.6 59 13 145/98 (114) 92 Room Air 11/19/16 12:15 36.6 62 20 148/86 (106) 92 Room Air 11/19/16 11:55 58 16 163/106 98 Nasal Cannula 4 11/19/16 11:40 65 16 169/97 98 Nasal Cannula 4 11/19/16 11:35 68 16 98 Nasal Cannula 6 11/19/16 11:30 77 16 169/100 98 Nasal Cannula 6 11/19/16 11:25 70 16 166/100 98 Nasal Cannula 6 Laboratory Results: Last 24 Hours Test 11/19/16 10:15 11/19/16 11:15 11/19/16 12:35 11/19/16 21:01 Kaolin Activated Coagulation Time 240 SECONDS 384 SECONDS White Blood Count 9.97 K/uL Red Blood Count 5.31 M/uL Hemoglobin 16.7 g/dL Hematocrit 48.0 % Mean Corpuscular Volume 90.4 fL Mean Corpuscular Hemoglobin 31.5 pg Mean Corpuscular Hemoglobin Concent 34.8 g/dl Platelet Count 178 K/uL Mean Platelet Volume 9.9 fL Neutrophils (%) (Auto) 68.1 % Lymphocytes (%) (Auto) 22.8 % Monocytes (%) (Auto) 6.8 % Eosinophils (%) (Auto) 1.9 % Basophils (%) (Auto) 0.2 % Neutrophils # (Auto) 6.79 K/uL Lymphocytes # (Auto) 2.27 K/uL Monocytes # (Auto) 0.68 K/uL Eosinophils # (Auto) 0.19 K/uL Basophils # (Auto) 0.02 K/uL RDW Standard Deviation 48.8 fL RDW Coefficient of Variation 14.7 % Immature Granulocyte % (Auto) 0.2 % Immature Granulocyte # (Auto) 0.02 K/uL Sodium Level 139 mmol/L Potassium Level 4.0 mmol/L Chloride Level 105 mmol/L Carbon Dioxide Level 26 mmol/L Anion Gap 8.0 mmol/L Blood Urea Nitrogen 17 mg/dl Creatinine 1.00 mg/dl Est Creatinine Clear Calc Drug Dose 66.7 ml/min Estimated GFR () 84.4 Estimated GFR (Non- 72.8 BUN/Creatinine Ratio 16.6 Random Glucose 107 mg/dl Calcium Level 8.4 mg/dl Total Creatine Kinase 64 U/L 1129 U/L Creatine Kinase MB 1.5 ng/ml 152.6 ng/ml Creatine Kinase MB Ratio 2.3 13.5 Troponin I 0.159 ng/ml 10.300 ng/ml Test 11/20/16 04:46 White Blood Count 11.97 K/uL Red Blood Count 4.76 M/uL Hemoglobin 14.3 g/dL Hematocrit 43.5 % Mean Corpuscular Volume 91.4 fL Mean Corpuscular Hemoglobin 30.0 pg Mean Corpuscular Hemoglobin Concent 32.9 g/dl Platelet Count 169 K/uL Mean Platelet Volume 9.7 fL Neutrophils (%) (Auto) 82.0 % Lymphocytes (%) (Auto) 10.0 % Monocytes (%) (Auto) 6.9 % Eosinophils (%) (Auto) 0.7 % Basophils (%) (Auto) 0.1 % Neutrophils # (Auto) 9.83 K/uL Lymphocytes # (Auto) 1.20 K/uL Monocytes # (Auto) 0.82 K/uL Eosinophils # (Auto) 0.08 K/uL Basophils # (Auto) 0.01 K/uL RDW Standard Deviation 49.0 fL RDW Coefficient of Variation 14.5 % Immature Granulocyte % (Auto) 0.3 % Immature Granulocyte # (Auto) 0.03 K/uL Activated Partial Thromboplast Time 26.5 SECONDS Partial Thromboplastin Ratio 1.0 Sodium Level 142 mmol/L Potassium Level 4.3 mmol/L Chloride Level 105 mmol/L Carbon Dioxide Level 32 mmol/L Anion Gap 5.0 mmol/L Blood Urea Nitrogen 16 mg/dl Creatinine 1.20 mg/dl Est Creatinine Clear Calc Drug Dose 55.6 ml/min Estimated GFR () 67.7 Estimated GFR (Non- 58.4 BUN/Creatinine Ratio 13.2 Random Glucose 120 mg/dl Calcium Level 7.7 mg/dl Phosphorus Level 2.7 mg/dl Magnesium Level 2.1 mg/dl Total Creatine Kinase 1846 U/L Creatine Kinase MB 226.5 ng/ml Creatine Kinase MB Ratio 12.3 Troponin I 28.500 ng/ml
[2016-11-20] MEDS ORDERED: ONDANSETRON INJ 2 MG/ML 2 ML VIAL IV PRN (12:04)
--- NOTE | 2016-11-20 12:10 | DIAGNOSTIC IMAGING REPORT ---
CT SINUSES-MAXILLOFACIAL W/O CLINICAL HISTORY: Sinus pain COMPARISON STUDY: None. TECHNIQUE: CT scan of the paranasal sinuses was performed in the axial plane. Coronal reconstructed images were obtained and reviewed. CT DOSE: 585.44 mGy.cm FINDINGS: There is mild maxillary ethmoid and frontal sinus mucosal thickening. There are no air-fluid levels to indicate acute sinusitis. The ostiomeatal units are patent bilaterally. There is nasal septal deviation to the right. There is a right-sided nasal septal spur. Ethmoid infundibula and frontal recesses are patent. IMPRESSION: 1. No evidence of acute sinusitis 2. Mild paranasal sinus mucosal thickening 3. The ostiomeatal units are patent bilaterally Electronically signed by: Gil Ahumada M.D. 11/20/2016 12:09 PM Dictated Date/Time: 11/20/2016 12:06 PM
[2016-11-20] MEDS ORDERED: NURSING VERBAL MED ORDER ONE (14:45)
[2016-11-20] MEDS ORDERED: POLYETHYLENE (MIRALAX) 17 GM PACK PO PRN (15:00)
--- NOTE | 2016-11-20 16:05 | ECHOCARDIOGRAM REPORT ---
*NOTICE TO RECEIVING [employer] This information is strictly Confidential and protected under [place] law. [place] law prohibits you from making any further disclosure of this information unless further disclosure is expressly permitted by the written consent of the person to whom it pertains or is authorized by law. A general authorization for the release of medical or other information is not sufficient for this purpose. Hospital accepts no responsibility if the information is made available to any other person, INCLUDING THE PATIENT. Interpretation Summary * Name: WM APARICIO Study Date: 11/20/2016 06:57 AM BP: 122/68 mmHg * Patient Location: E110 HR: 61 * : 1940 (M/d/yyyy) Gender: Male Height: 68 in * Age: 76 yrs Ethnicity: CA Weight: 187 lb * Ordering Physician: [place] * Referring Physician: No Doctor, Assigned * Performed By: Maine Trejo RCS * * Reason For Study: AMI / FOLLOW UP TO ECHO 11/19/16 * BSA: 2.0 m2 * -- Conclusions -- * There is mild concentric left ventricular hypertrophy. * The left ventricular wall motion is normal at rest. * Ejection Fraction = 55-60%. Procedure Details * Limited views were obtained. * A contrast injection of Definity was performed to improve assessment of LV function. * Contrast was injected into an intravenous site in the left arm. * One vial of Definity ultrasound contrast was diluted in normal saline to a total volume of 10 ml. A total of '2' ml of solution was administered during imaging. * Lot # [id number] of Definity utilized for procedure. * Expiration date JAN 06. * The attending nurse who injected the contrast agent was CHANTEL HUFF, RN. Left Ventricle * The left ventricle is grossly normal size. * There is mild concentric left ventricular hypertrophy. * Ejection Fraction = 55-60%. * The left ventricular wall motion is normal at rest. Right Ventricle * The right ventricle is grossly normal size. * The right ventricular systolic function is normal. Atria * The left atrial size is normal. * Right atrial size is normal. * The interatrial septum is intact with no evidence for an atrial septal defect. Mitral Valve * The mitral valve anatomy is normal. * Significant mitral regurgitation is absent. Tricuspid Valve * The tricuspid valve is not well visualized, but is grossly normal. * There is mild tricuspid regurgitation. Aortic Valve * The aortic valve is tricuspid. The leaflet thickness if normal. There is no aortic stenosis, and no significant insufficiency. * No hemodynamically significant valvular aortic stenosis. * There is no significant aortic regurgitation. Pulmonic Valve * The pulmonic valve is not well visualized. Pericardium/Pleural * There is no pericardial effusion. MMode 2D Measurements and Calculations IVSd 1.4 cm IVSs 2.0 cm LVIDd 3.5 cm LVIDs 2.2 cm LVPWd 1.1 cm LVPWs 1.2 cm IVS/LVPW 1.2 FS 37.8 % EDV(Teich) 51.4 ml ESV(Teich) 16.0 ml EF(Teich) 68.9 % EDV(cubed) 43.5 ml ESV(cubed) 10.5 ml EF(cubed) 75.9 % % IVS thick 44.5 % % LVPW thick 8.1 % LV mass(C)d 144.5 grams LV mass(C)dI 72.7 grams/m\S\2 LV mass(C)s 120.8 grams LV mass(C)sI 60.8 grams/m\S\2 SV(Teich) 35.4 ml SI(Teich) 17.8 ml/m\S\2 SV(cubed) 33.0 ml SI(cubed) 16.6 ml/m\S\2 LVAd ap4 29.1 cm\S\2 LVLd ap4 6.8 cm EDV(MOD-sp4) 101.1 ml EDV(sp4-el) 106.2 ml LVAs ap4 17.0 cm\S\2 LVLs ap4 5.8 cm ESV(MOD-sp4) 42.7 ml ESV(sp4-el) 42.0 ml EF(MOD-sp4) 57.8 % EF(sp4-el) 60.5 % LVAd ap2 35.7 cm\S\2 LVLd ap2 8.1 cm EDV(MOD-sp2) 128.2 ml EDV(sp2-el) 134.0 ml LVAs ap2 21.3 cm\S\2 LVLs ap2 6.7 cm ESV(MOD-sp2) 58.2 ml ESV(sp2-el) 56.9 ml EF(MOD-sp2) 54.6 % EF(sp2-el) 57.5 % LVLd %diff 16.5 % EDV(MOD-bp) 123.7 ml LVLs %diff 13.7 % ESV(MOD-bp) 53.6 ml EF(MOD-bp) 56.7 % SV(MOD-sp4) 58.4 ml SI(MOD-sp4) 29.4 ml/m\S\2 SV(MOD-sp2) 70.0 ml SI(MOD-sp2) 35.2 ml/m\S\2 SV(MOD-bp) 70.2 ml SI(MOD-bp) 35.3 ml/m\S\2 SV(sp4-el) 64.2 ml SI(sp4-el) 32.3 ml/m\S\2 SV(sp2-el) 77.1 ml SI(sp2-el) 38.8 ml/m\S\2 Doppler Measurements and Calculations MV E max valeria 72.8 cm/sec MV A max valeria 43.7 cm/sec MV E/A 1.7 MV P1/2t max valeria 87.1 cm/sec MV P1/2t 86.6 msec MVA(P1/2t) 2.5 cm\S\2 MV dec slope 294.6 cm/sec\S\2 MV dec time 0.31 sec Ao V2 max 177.2 cm/sec Ao max PG 12.6 mmHg Ao max PG (full) 7.4 mmHg LV V1 max PG 5.2 mmHg LV V1 max 113.8 cm/sec MR max valeria 489.2 cm/sec MR max PG 95.7 mmHg TR max valeria 273.5 cm/sec
[2016-11-20] MEDS: METOPROLOL TARTRATE 50 MG TAB PO SCH (22:08)
[2016-11-20] MEDS: TAMSULOSIN HCL 0.4 MG CAP PO SCH (22:09)
[2016-11-21] VITALS (14 sets, daily range): BP systolic 97–128; BP diastolic 44–92; PULSE 65–86; TEMP 36.6–37.1; O2SAT 92–98
[2016-11-21 05:45] LABS: BASO % 0.1 %; BASO ABS # 0.02 K/uL (0-0.2); COMPLETE YES; EOS % 0.6 %; HEMATOCRIT 43.6 % (42-52); IG% 0.2 %; LYMPH % 8.8 %; LYMPH ABS # 1.32 K/uL (1.2-3.4); MEAN CELL VOLUME 90.8 fL (80-100); MEAN CORPUSCULAR HEMOGLOBIN 30.8 pg (25-34); MEAN CORPUSCULAR HGB CONC 33.9 g/dl (32-36); MEAN PLATELET VOLUME 9.9 fL (7.4-10.4); MONO % 8.8 %; NEUT % 81.5 %; PLATELET COUNT 178 K/uL (130-400); WHITE BLOOD COUNT 15.02 K/uL (4.8-10.8)
[2016-11-21 05:55] LABS: PARTIAL THROMBOPLASTIN RATIO 1.3
[2016-11-21 06:20] LABS: BUN/CREATININE RATIO 11.1 (10-20); CALCIUM 8.5 mg/dl (8.5-10.1); CREATININE 1.1 mg/dl (0.60-1.40); POTASSIUM 4.1 mmol/L (3.5-5.1)
--- NOTE | 2016-11-21 06:49 | DIAGNOSTIC IMAGING REPORT ---
ULTRASOUND OF THE CAROTID ARTERIES CLINICAL HISTORY: history of plaques managed in [facility]. Has STEMI currently COMPARISON STUDY: None. TECHNIQUE: Real-time, grayscale, and color Doppler sonography of the carotid arteries was performed. Imaging reviewed in the transverse and longitudinal planes. NASCET criteria was utilized for stenosis calcification. FINDINGS: There is mild atherosclerotic plaque present . The peak systolic velocity within the right internal carotid artery is 76 cm/sec. The systolic velocity ratio of right internal to common carotid artery is 0.9. The peak systolic velocity within the left internal carotid artery is 82 cm/sec. The systolic velocity ratio left internal to common carotid artery is 0.9. Antegrade flow is seen in the vertebral arteries. The external carotid arteries are patent. Blood pressure in the right arm measured 119 mm/Hg. Blood pressure in the left arm measured 128 mm/Hg. IMPRESSION: No evidence of hemodynamically significant carotid stenosis. Electronically signed by: Gil Ahumada M.D. 11/21/2016 6:48 AM Dictated Date/Time: 11/21/2016 6:46 AM
[2016-11-21] MEDS: LISINOPRIL 5 MG TAB PO SCH (07:56)
[2016-11-21] MEDS: METOPROLOL TARTRATE 50 MG TAB PO SCH ×2 (07:56→21:21)
[2016-11-21] MEDS: ASPIRIN 81 MG ECTAB PO SCH (07:57)
[2016-11-21] MEDS: ATORVASTATIN 40 MG TAB PO SCH (07:57)
[2016-11-21] MEDS: CLOPIDOGREL BISULFATE 75 MG TAB PO SCH (07:57)
[2016-11-21] MEDS: ASCORBIC ACID 500 MG TAB PO SCH (07:57)
[2016-11-21] MEDS: MULTIVITAMIN TAB PO SCH (07:57)
[2016-11-21] MEDS: MoRPHine SULFATE 2 MG/ML CARP IM PRN (07:58)
[2016-11-21] MEDS: ENOXAPARIN 100 MG/1ML SYR SQ SCH ×2 (08:54→21:22)
[2016-11-21] MEDS ORDERED: COLCHICINE 0.6 MG TAB PO ONE (11:30)
--- NOTE | 2016-11-21 12:16 | PROGRESS NOTE ---
DATE: 11/21/2016 SUBJECTIVE: This is a 76-year-old male patient who presented with non-STEMI. He underwent a cardiac catheterization which revealed a high-grade stenosis of a circ marginal branch. An attempt was made by Dr. Carroll to wire the vessel and place a stent, but the wire would never cross the areas of stenosis and the vessel closed down. It was decided that the best option for the patient would be to treat medically as further intervention may cause additional harm or problems. The patient completed his infarct. His echocardiogram showed that his LV function is preserved. His cardiac troponins peaked at 28. Unfortunately, the patient continues to have some residual chest pain. He rates it as a 3/10. He did receive some morphine this morning. The patient is frustrated at this point and asked to be transferred to [facility] in [place]. I had the cardiac catheterization films transferred to [place] and I spoke with Dr. Dung Murillo, who is one of the experienced interventionalist down at [facility] and after reviewing the case and the heart films, he felt that there would be nothing additional that they could provide for this patient. The circumflex marginal is felt to be a completed infarct. He does have an area of stenosis and a very small caliber LAD branch that would not be amendable to intervention because of its small diameter and was felt that it should be treated medically. After having that discussed with Dr. Murillo, I sat down with Mr. Marin and his daughter, Jenny. I spoke to him for approximately half hour. I gave him the information and felt that our best option would be to continue pain management and to add colchicine as an anti-inflammatory agent for possible pericarditis. I also indicated to him that I would draw additional cardiac markers to be certain that his infarct was completed. At this point, he is agreeable to staying here at [facility]. If something should change, we would certainly be willing to send him to [facility] or if the patient changes his mind and still wants to go for a second opinion, we would be happy to send him to [place]. At present, we will continue current treatment, add colchicine and draw additional cardiac markers. At present, the patient is pain free. OBJECTIVE: GENERAL: He is alert and oriented. VITAL SIGNS: Blood is 110/60, pulse is regular at 80 beats per minute. He is afebrile. HEENT: He is normocephalic. Pupils are equal and reactive to light. Extraocular muscles are intact bilaterally. NECK: The neck veins are flat. Carotids have good upstrokes bilaterally without bruits. Thyroid is nonpalpable. RESPIRATORY: Breath sounds equal bilaterally and clear to auscultation. CARDIOVASCULAR: Heart has a regular rhythm. There are no cardiac rubs or murmurs. GASTROINTESTINAL: Abdomen is soft, nontender without organomegaly. EXTREMITIES: Free of edema, digit clubbing, or cyanosis. NEUROLOGIC: Grossly intact. SKIN: Warm to touch. LYMPH NODES: Negative to palpation. LABORATORY DATA: Hemoglobin is 14.8, platelets are 178, creatinine is 1.1, potassium is 4.1. IMPRESSION: 1. Acute inferior-posterior wall myocardial infarction status post failed percutaneous coronary intervention on a circumflex marginal branch. RECOMMENDATIONS: As outlined above, we have reviewed the films with the interventionalist out at [facility]. We talked extensively with the patient and his daughter and at this point, the plan will be to keep him at [facility] with continued treatment and analgesics as needed.
--- NOTE | 2016-11-21 19:17 | Critical Care Progress Note ---
Critical Care Progress Note Date of Service Nov 21, 2016. ICU Day ICU Day Number: [address] Crump Subjective 76 yo male with comorbidities of (1) BPH seems to have history of (2) CAD with stable angina admitted with (4) NSTEMI found to have OM1 90% occlusion not amenable to PCI or stent. His cath complicated by ? spasm/acute occlusion and (5 ) STEMI and Cardiology recommends medical therapy for now. The patient continues to have on and off CP responsive to NTG and morphine. He had asked for a second opinion from [facility] and they informed us to continue with medical therapy. No other intervention would be offered there. He had US of the carotids and those showed no hemodynamically significant obstruction Objective General Appearance: well-appearing, mild distress Head: normocephalic, atraumatic Eyes: PERRLA, no discharge ENT: normal sinus exam Neck: normal range of motion, supple Respiratory: clear to auscultation Cardiovasular: regular rate/rhythm, no M/G/R No rub heard. Abdomen: non tender, normal bowel sounds, no rebound, no masses, no guarding Genitourinary - Male: external genitalia normal Back: normal inspection Extremities: no edema clubbing or cyanosis. Pulses: carotid (R) (2+), carotid (L) (2+), dorsalis pedis (R) (2+), dorsalis pedis (L) (2+), posterior tibial (R), posterior tibial (L). Neuro: alert, oriented x 3, normal motor exam Current SOFA Score SOFA Score Response (Comments) Value Platelets (x10) > 150 0 Bilirubin (mg/dL) < 1.2 0 Britt Coma Score 15 0 Level of Hypotension No Hypotension 0 Creatinine (mg/dL) 1.2 - 1.9 1 Total 1 Previous SOFA Scores 1 Assessment & Plan (1) BPH s (2) CAD with (3) chest pain stable angina admitted with (4) NSTEMI found to have OM1 90% occlusion not amenable to PCI or stent. His cath complicated by ? spasm/acute occlusion and (5) STEMI Neurologic lorazepam 0.5 mg PRN Q6 anxiety morphine sulfate 2 mg Q2 PRN CP Respiratory O2 via NC 2-4 lit/min titrate to SPO2>98% Cardiovascular CT sinuses showed no acute sinusitis. Carotid duplex shows no obstruction. he jaw/neck pain is likely related to angina per cardiology NTG drip titrate to CP ASA 81 mg PO daily ATORVASTATIN 80 mg PO daily metoprolol 50 mg PO BID. lisinopril 5 mg PO daily plavix 75 mg daily lovenox BID therapeutic dose will FU troponin until it peaks GI diet heart healthy diet no need for GI prophylaxis continue his vitamin C supplement Renal FU electrolytes and replete He is freely voiding and no I/O available continue Flomax home dose ID no foci of infection will monitor endocrine no history of DM DVT prophylaxis lovenox BID therapeutic dose. Tomorrow will be day 3 will check with cardiology when to go to prophylactic dose Patient is acutely ill and has an STEMI. Will monitor in MICU for complications of CO (arrhythmia and Valvular disease) He is full code Spent 40 minutes of CC time with patient and family Consults & Procedures Consultants: cardiology Procedures: cardiac cath Consults & Procedures Consultants: cardiology Procedures: cardiac cath Data Medications: Current Inpatient Medications Medications (Trade) Dose Ordered Sig/Sergei Route Start Time Stop Time Status Last Admin Dose Admin Miscellaneous (Iv Fluids Completed) 1 ea PRN PRN N/A 11/18/16 14:00 11/18/17 13:59 Acetaminophen (Tylenol Tab) 650 mg Q4H PRN PO 11/18/16 14:30 12/18/16 14:29 Nitroglycerin (Nitrostat Tab) 0.4 mg UD PRN SL 11/18/16 14:30 12/18/16 14:29 Aspirin (Ecotrin Tab) 81 mg DAILY PO 11/19/16 09:00 12/19/16 08:59 11/21/16 07:57 81 MG Multivitamins (Multivitamin Tab) 1 tab DAILY PO 11/19/16 09:00 12/19/16 08:59 11/21/16 07:57 1 TAB Ascorbic Acid (Vitamin C Tab) 1,000 mg DAILY PO 11/19/16 09:00 12/19/16 08:59 11/21/16 07:57 1,000 MG Tamsulosin HCl (Flomax Cap) 0.4 mg HS PO 11/19/16 21:00 12/19/16 20:59 11/20/16 22:09 0.4 MG Atropine Sulfate (Atropine Sulfate 0.1MG/Ml Inj) 0.5 mg ONE PRN IV 11/19/16 12:15 12/19/16 12:14 Lisinopril (Zestril Tab) 5 mg QAM PO 11/20/16 09:00 12/20/16 08:59 11/21/16 07:56 5 MG Lorazepam 0.5 mg/ Syringe 1 ml @ 1 mls/min Q6H PRN IV 11/19/16 12:15 12/19/16 12:14 11/19/16 14:49 1 MLS/MIN Atorvastatin Calcium (Lipitor Tab) 80 mg QAM PO 11/20/16 09:00 12/20/16 08:59 11/21/16 07:57 80 MG Nitroglycerin/ Dextrose 250 ml @ 0 mls/hr Q0M PRN IV 11/19/16 12:15 12/19/16 12:14 Lorazepam (Ativan Inj) 0.5 mg Q6H PRN IV 11/19/16 13:30 12/19/16 13:29 Tramadol HCl (Ultram Tab) 25 mg Q6H PRN PO 11/20/16 06:45 12/20/16 06:44 11/20/16 06:43 25 MG Metoprolol Tartrate (Lopressor Tab) 50 mg Q12 PO 11/20/16 09:00 12/19/16 20:59 Future hold 11/21/16 07:56 50 MG Clopidogrel Bisulfate (plAVix TAB) 75 mg QAM PO 11/20/16 09:00 12/20/16 08:59 11/21/16 07:57 75 MG Enoxaparin Sodium (Lovenox Inj) 90 mg Q12H SQ 11/20/16 10:00 12/20/16 09:59 11/21/16 08:54 90 MG Ondansetron HCl (Zofran Inj) 4 mg Q4H PRN IV 11/20/16 12:04 12/18/16 12:03 11/20/16 12:14 4 MG Polyethylene (Miralax Powder Packet) 17 gm DAILY PRN PO 11/20/16 15:00 12/20/16 14:59 11/20/16 15:34 17 GM Colchicine (Colchicine Tab) 0.6 mg BID PO 11/21/16 21:00 12/21/16 20:59 I & O: 24-Hour Column 11/22/16 08:00 Intake Total 620 ml Balance 620 ml Vital Signs: Date Time Temp Pulse Resp B/P (MAP) Pulse Ox O2 Delivery O2 Flow Rate FiO2 11/21/16 18:08 85 22 126/68 (87) 96 Room Air 11/21/16 15:54 36.9 79 16 124/70 (88) 96 Room Air 11/21/16 15:54 98 Room Air 11/21/16 14:14 76 23 111/67 (82) 94 Room Air 11/21/16 12:00 Room Air 11/21/16 11:31 36.6 71 22 100/61 (74) 95 Room Air 11/21/16 10:25 79 24 97/63 (74) 95 Room Air 11/21/16 08:08 36.7 78 12 111/65 (80) 94 Room Air 11/21/16 08:00 Room Air 11/21/16 06:00 76 22 11/21/16 04:00 37.1 70 18 111/60 (77) 95 Room Air 11/21/16 04:00 96 Room Air 11/21/16 02:00 65 14 95 Room Air 11/21/16 00:01 37.1 77 15 128/65 (86) 94 Room Air 11/20/16 23:59 94 Room Air 11/20/16 22:00 71 20 112/57 (75) 95 Room Air 11/20/16 20:00 Room Air 11/20/16 20:00 37.5 63 12 119/65 (83) 95 Room Air Laboratory Results: Last 24 Hours Test 11/20/16 22:17 11/21/16 05:30 11/21/16 10:48 Bedside Glucose 132 mg/dl White Blood Count 15.02 K/uL Red Blood Count 4.80 M/uL Hemoglobin 14.8 g/dL Hematocrit 43.6 % Mean Corpuscular Volume 90.8 fL Mean Corpuscular Hemoglobin 30.8 pg Mean Corpuscular Hemoglobin Concent 33.9 g/dl Platelet Count 178 K/uL Mean Platelet Volume 9.9 fL Neutrophils (%) (Auto) 81.5 % Lymphocytes (%) (Auto) 8.8 % Monocytes (%) (Auto) 8.8 % Eosinophils (%) (Auto) 0.6 % Basophils (%) (Auto) 0.1 % Neutrophils # (Auto) 12.24 K/uL Lymphocytes # (Auto) 1.32 K/uL Monocytes # (Auto) 1.32 K/uL Eosinophils # (Auto) 0.09 K/uL Basophils # (Auto) 0.02 K/uL RDW Standard Deviation 46.9 fL RDW Coefficient of Variation 14.1 % Immature Granulocyte % (Auto) 0.2 % Immature Granulocyte # (Auto) 0.03 K/uL Activated Partial Thromboplast Time 32.8 SECONDS Partial Thromboplastin Ratio 1.3 Sodium Level 139 mmol/L Potassium Level 4.1 mmol/L Chloride Level 104 mmol/L Carbon Dioxide Level 30 mmol/L Anion Gap 5.0 mmol/L Blood Urea Nitrogen 12 mg/dl Creatinine 1.10 mg/dl Est Creatinine Clear Calc Drug Dose 61.4 ml/min Estimated GFR () 75.2 Estimated GFR (Non- 64.9 BUN/Creatinine Ratio 11.1 Random Glucose 119 mg/dl Calcium Level 8.5 mg/dl Total Creatine Kinase 1037 U/L Troponin I 32.900 ng/ml
[2016-11-21] MEDS: COLCHICINE 0.6 MG TAB PO SCH (21:21)
[2016-11-21] MEDS: TAMSULOSIN HCL 0.4 MG CAP PO SCH (21:21)
--- NOTE | 2016-11-21 23:26 | Progress Note ---
Internal Med Progress Note Date of Service: Nov 21, 2016. Provider Documentation: SUBJECTIVE: continues to have intermittent chest pain feels a bit better today has chronic throat discomfort -unchanged off Nitro gtt OBJECTIVE: Vital Signs-as noted below Exam: General-no sign of distress Eyes-sclera non icteric Lungs-CTA Heart-regular S1/S2 Abdomen-soft, non tender Extremities-no lower ext edema Neuro-AAO x3, no focal deficit Lab data as noted below. ASSESSMENT & PLAN: NSTEMI: presented with chest pain /TODD /reduced exercise tolerance underwent cardiac cath found to have diffuse CAD with high grade stenosis unable to do intervention/PTCA -developed complete occlusion of culprit vessel with ST elevation , pt developed chest pain given high risk for Coronary artery perforation with further attempt medical management was found to most beneficial in this case pt remained in ICU Integrilin gtt continued for 18 hrs , weaned Nitro gtt on Aspirin , Plavix, beta césar ,statin and ACEI troponin elevated 28 -> 32 -evolving NE Cardiology following closely pt continues to have intermittent chest discomfort /heaviness /ongoing angina added Colchicine for possible post NE pericarditis repeat ECHO : There is mild concentric left ventricular hypertrophy. The left ventricular wall motion is normal at rest. Ejection Fraction = 55-60%. SORE THROAT : Has been a chronic issue since last Apr 2016 was treated with Z pack , prednisone taper , nasal spray over the counter agents no improvement of symptoms mentions that he always feels his throat been closing on him denies of any problem with swallowing pt was asked to be evaluated by ENT by Family Physician pt counselled will need ENT eval as out patient after recovery form acute NE DVT PROPHYLAXIS sub q heparin FULL CODE DISPOSITION continue to monitor in ICU fo evolving NE To home when medically stable will need referral to Cardiac rehab Medicine follow up with Dr Galo will need close follow up with Cardiology as out patient Vital Signs: Date Time Temp Pulse Resp B/P (MAP) Pulse Ox O2 Delivery O2 Flow Rate FiO2 11/21/16 22:05 36.8 77 8 104/44 (64) 94 11/21/16 20:10 96 Room Air 11/21/16 19:30 36.8 86 21 112/92 (99) 94 Room Air 11/21/16 18:08 85 22 126/68 (87) 96 Room Air 11/21/16 15:54 36.9 79 16 124/70 (88) 96 Room Air 11/21/16 15:54 98 Room Air 11/21/16 14:14 76 23 111/67 (82) 94 Room Air 11/21/16 12:00 Room Air 11/21/16 11:31 36.6 71 22 100/61 (74) 95 Room Air 11/21/16 10:25 79 24 97/63 (74) 95 Room Air 11/21/16 08:08 36.7 78 12 111/65 (80) 94 Room Air 11/21/16 08:00 Room Air 11/21/16 06:00 76 22 11/21/16 04:00 37.1 70 18 111/60 (77) 95 Room Air 11/21/16 04:00 96 Room Air 11/21/16 02:00 65 14 95 Room Air 11/21/16 00:01 37.1 77 15 128/65 (86) 94 Room Air 11/20/16 23:59 94 Room Air Lab Results: Results Past 24 Hours Test 11/21/16 05:30 11/21/16 10:48 Range/Units White Blood Count 15.02 4.8-10.8 K/uL Red Blood Count 4.80 4.7-6.1 M/uL Hemoglobin 14.8 14.0-18.0 g/dL Hematocrit 43.6 42-52 % Mean Corpuscular Volume 90.8 80-100 fL Mean Corpuscular Hemoglobin 30.8 25-34 pg Mean Corpuscular Hemoglobin Concent 33.9 32-36 g/dl Platelet Count 178 130-400 K/uL Mean Platelet Volume 9.9 7.4-10.4 fL Neutrophils (%) (Auto) 81.5 % Lymphocytes (%) (Auto) 8.8 % Monocytes (%) (Auto) 8.8 % Eosinophils (%) (Auto) 0.6 % Basophils (%) (Auto) 0.1 % Neutrophils # (Auto) 12.24 1.4-6.5 K/uL Lymphocytes # (Auto) 1.32 1.2-3.4 K/uL Monocytes # (Auto) 1.32 0.11-0.59 K/uL Eosinophils # (Auto) 0.09 0-0.5 K/uL Basophils # (Auto) 0.02 0-0.2 K/uL RDW Standard Deviation 46.9 36.4-46.3 fL RDW Coefficient of Variation 14.1 11.5-14.5 % Immature Granulocyte % (Auto) 0.2 % Immature Granulocyte # (Auto) 0.03 0.00-0.02 K/uL Activated Partial Thromboplast Time 32.8 21.0-31.0 SECONDS Partial Thromboplastin Ratio 1.3 Sodium Level 139 136-145 mmol/L Potassium Level 4.1 3.5-5.1 mmol/L Chloride Level 104 98-107 mmol/L Carbon Dioxide Level 30 21-32 mmol/L Anion Gap 5.0 3-11 mmol/L Blood Urea Nitrogen 12 7-18 mg/dl Creatinine 1.10 0.60-1.40 mg/dl Est Creatinine Clear Calc Drug Dose 61.4 ml/min Estimated GFR () 75.2 Estimated GFR (Non- 64.9 BUN/Creatinine Ratio 11.1 10-20 Random Glucose 119 70-99 mg/dl Calcium Level 8.5 8.5-10.1 mg/dl Total Creatine Kinase 1037 39-308 U/L Troponin I 32.900 0-0.045 ng/ml
[2016-11-22] VITALS (14 sets, daily range): BP systolic 92–116; BP diastolic 43–66; PULSE 61–79; TEMP 36.6–37; O2SAT 92–96
[2016-11-22 06:24] LABS: BASO % 0.2 %; BASO ABS # 0.02 K/uL (0-0.2); COMPLETE YES; EOS % 0.9 %; HEMATOCRIT 42.8 % (42-52); IG% 0.3 %; LYMPH % 14.5 %; LYMPH ABS # 1.62 K/uL (1.2-3.4); MEAN CELL VOLUME 90.5 fL (80-100); MEAN CORPUSCULAR HEMOGLOBIN 30.9 pg (25-34); MEAN CORPUSCULAR HGB CONC 34.1 g/dl (32-36); MEAN PLATELET VOLUME 9.8 fL (7.4-10.4); MONO % 9.3 %; NEUT % 74.8 %; PLATELET COUNT 163 K/uL (130-400); RED BLOOD COUNT 4.73 M/uL (4.7-6.1); WHITE BLOOD COUNT 11.16 K/uL (4.8-10.8)
[2016-11-22 06:33] LABS: PARTIAL THROMBOPLASTIN RATIO 1.3
[2016-11-22 06:46] LABS: BUN/CREATININE RATIO 14.2 (10-20); CALCIUM 8.3 mg/dl (8.5-10.1); CREATININE 1.3 mg/dl (0.60-1.40); POTASSIUM 3.9 mmol/L (3.5-5.1)
[2016-11-22] MEDS: COLCHICINE 0.6 MG TAB PO SCH ×2 (08:11→21:34)
[2016-11-22] MEDS: METOPROLOL TARTRATE 50 MG TAB PO SCH ×2 (08:11→21:34)
[2016-11-22] MEDS: ATORVASTATIN 40 MG TAB PO SCH (08:11)
[2016-11-22] MEDS: ASCORBIC ACID 500 MG TAB PO SCH (08:11)
[2016-11-22] MEDS: MULTIVITAMIN TAB PO SCH (08:11)
[2016-11-22] MEDS: ASPIRIN 81 MG ECTAB PO SCH (08:11)
[2016-11-22] MEDS: LISINOPRIL 5 MG TAB PO SCH (08:11)
[2016-11-22] MEDS: CLOPIDOGREL BISULFATE 75 MG TAB PO SCH (08:11)
[2016-11-22] MEDS: ENOXAPARIN 100 MG/1ML SYR SQ SCH (08:12)
--- NOTE | 2016-11-22 09:17 | Progress Note ---
Internal Med Progress Note Date of Service: Nov 22, 2016. Provider Documentation: SUBJECTIVE: pt seen in ICU bed 110 had uneventful night mentions of having chest pain intermittently at present symptom free ,no SOB or TODD pt walked in the ICU unit -with moderate pace X1 lap , no TODD , exertional chest pain noted feels fine wants to know when he can be discharged home OBJECTIVE: Vital Signs-as noted below Exam: General-no sign of distress Eyes-sclera non icteric Lungs-CTA Heart-regular S1/S2 Abdomen-soft, non tender Extremities-no lower ext edema Neuro-AAO x3, no focal deficit Lab data as noted below. ASSESSMENT & PLAN: NSTEMI: presented with chest pain /TODD /reduced exercise tolerance underwent cardiac cath found to have diffuse CAD with high grade stenosis -90% in OM unable to do intervention/PTCA -developed complete occlusion of culprit vessel given high risk for Coronary artery perforation with further attempt medical management was found to most beneficial in this case pt remained in ICU Integrilin gtt continued for 18 hrs , weaned off Nitro gtt Current Cardiac meds : ASA 81 mg PO daily ATORVASTATIN 80 mg PO daily metoprolol 50 mg PO BID. lisinopril 5 mg PO daily plavix 75 mg daily troponin was elevated 28 -> peaked at 32 -now trending down to 22 chest pain has improved /no TODD or ambulation Cardiology following closely pt was continues to have intermittent chest discomfort /heaviness /ongoing angina added Colchicine for possible post ID pericarditis symptom has markedly improved today repeat ECHO post ID : There is mild concentric left ventricular hypertrophy. The left ventricular wall motion is normal at rest. Ejection Fraction = 55-60%. SORE THROAT : Has been a chronic issue since last Apr 2016 was treated with Z pack , prednisone taper , nasal spray over the counter agents no improvement of symptoms mentions that he always feels his throat been closing on him denies of any problem with swallowing pt was asked to be evaluated by ENT by Family Physician pt counselled will need ENT eval as out patient after recovery form acute ID DVT PROPHYLAXIS Lovenox 90 mg SQ BID -therapeutic dose FULL CODE DISPOSITION To home when medically stable will defer to cardiology referral made to Cardiac rehab Medicine follow up with Dr Galo already has appointment scheduled for Thursday11/25/16 will need close follow up with Cardiology as out patient Vital Signs: Date Time Temp Pulse Resp B/P (MAP) Pulse Ox O2 Delivery O2 Flow Rate FiO2 11/22/16 08:02 36.6 79 18 107/55 (72) 95 Room Air 11/22/16 08:00 Room Air 11/22/16 05:01 65 10 96/43 (60) 94 Room Air 11/22/16 04:06 93 Room Air 11/22/16 04:01 36.8 64 20 92/48 (63) 94 Room Air 11/22/16 03:01 76 17 116/66 (83) 94 Room Air 11/22/16 02:02 63 21 99/53 (68) 93 Room Air 11/22/16 00:03 36.8 76 20 107/66 (80) 92 Room Air 11/22/16 00:01 93 Room Air 11/21/16 23:01 77 19 124/71 (88) 92 Room Air 11/21/16 22:05 36.8 77 8 104/44 (64) 94 11/21/16 20:10 96 Room Air 11/21/16 19:30 36.8 86 21 112/92 (99) 94 Room Air 11/21/16 18:08 85 22 126/68 (87) 96 Room Air 11/21/16 15:54 36.9 79 16 124/70 (88) 96 Room Air 11/21/16 15:54 98 Room Air 11/21/16 14:14 76 23 111/67 (82) 94 Room Air 11/21/16 12:00 Room Air 11/21/16 11:31 36.6 71 22 100/61 (74) 95 Room Air 11/21/16 10:25 79 24 97/63 (74) 95 Room Air Lab Results: Results Past 24 Hours Test 11/21/16 10:48 11/22/16 06:16 Range/Units Troponin I 32.900 22.800 0-0.045 ng/ml White Blood Count 11.16 4.8-10.8 K/uL Red Blood Count 4.73 4.7-6.1 M/uL Hemoglobin 14.6 14.0-18.0 g/dL Hematocrit 42.8 42-52 % Mean Corpuscular Volume 90.5 80-100 fL Mean Corpuscular Hemoglobin 30.9 25-34 pg Mean Corpuscular Hemoglobin Concent 34.1 32-36 g/dl Platelet Count 163 130-400 K/uL Mean Platelet Volume 9.8 7.4-10.4 fL Neutrophils (%) (Auto) 74.8 % Lymphocytes (%) (Auto) 14.5 % Monocytes (%) (Auto) 9.3 % Eosinophils (%) (Auto) 0.9 % Basophils (%) (Auto) 0.2 % Neutrophils # (Auto) 8.35 1.4-6.5 K/uL Lymphocytes # (Auto) 1.62 1.2-3.4 K/uL Monocytes # (Auto) 1.04 0.11-0.59 K/uL Eosinophils # (Auto) 0.10 0-0.5 K/uL Basophils # (Auto) 0.02 0-0.2 K/uL RDW Standard Deviation 47.4 36.4-46.3 fL RDW Coefficient of Variation 14.2 11.5-14.5 % Immature Granulocyte % (Auto) 0.3 % Immature Granulocyte # (Auto) 0.03 0.00-0.02 K/uL Activated Partial Thromboplast Time 33.2 21.0-31.0 SECONDS Partial Thromboplastin Ratio 1.3 Sodium Level 140 136-145 mmol/L Potassium Level 3.9 3.5-5.1 mmol/L Chloride Level 106 98-107 mmol/L Carbon Dioxide Level 27 21-32 mmol/L Anion Gap 7.0 3-11 mmol/L Blood Urea Nitrogen 18 7-18 mg/dl Creatinine 1.30 0.60-1.40 mg/dl Est Creatinine Clear Calc Drug Dose 52.0 ml/min Estimated GFR () 61.4 Estimated GFR (Non- 53.0 BUN/Creatinine Ratio 14.2 10-20 Random Glucose 100 70-99 mg/dl Calcium Level 8.3 8.5-10.1 mg/dl
[2016-11-22] MEDS ORDERED: ISOSORBIDE MONONITRATE 30 MG TABCR PO ONE (10:30)
--- NOTE | 2016-11-22 10:33 | Cardiology Follow-Up ---
Subjective General Date of Service: Nov 22, 2016. 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 Coleman earlier this hospital stay. Patient notes feeling well. No chest discomfort reported overnight. Telemetry reveals sinus rhythm with occasional isolated PVCs with no significant prolonged ventricular arrhythmias. 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 His troponin has trended down compared to yesterday. Allergies Coded Allergies: No Known Allergies (Unverified , 11/18/16) Social History Smoking Status: Former Smoker Hx Tobacco Use In Past Year?: No Hx Alcohol Use - Type And Amou: Yes (WINE AND BEER ON OCCASION) Hx Substance Use - Type And Am: No Problem List Medical Problems: (1) Substernal chest pain Status: Acute Physical Exam Vital Signs Last Vital Signs Documentation Date Time Temp Pulse Resp B/P (MAP) Pulse Ox O2 Delivery O2 Flow Rate FiO2 11/22/16 08:02 36.6 79 18 107/55 (72) 95 Room Air 11/20/16 08:00 2.0 Physical Exam Constitutional: Level of Distress: NAD Head: normocephalic Neck: supple Lungs: Auscultation: no wheezing, no rales/crackles Cardiovascular: Heart Auscultation: RRR, no murmurs, no rubs Extremities: no cyanosis, no edema Neurologic: Gait & Station: pertinent finding (no edema) Assessment and Plan Assessment and Plan Last Resulted 11/22/16 06:16 Red Blood Count 4.73, Mean Corpuscular Volume 90.5, Mean Corpuscular Hemoglobin 30.9, Mean Corpuscular Hemoglobin Concent 34.1, Mean Platelet Volume 9.8, Neutrophils (%) (Auto) 74.8, Lymphocytes (%) (Auto) 14.5, Monocytes (%) (Auto) 9.3, Eosinophils (%) (Auto) 0.9, Basophils (%) (Auto) 0.2, Neutrophils # (Auto) 8.35, Lymphocytes # (Auto) 1.62, Monocytes # (Auto) 1.04, Eosinophils # (Auto) 0.10, Basophils # (Auto) 0.02 Last Resulted 11/22/16 06:16 Past 24 Hours Test 11/21/16 10:48 11/22/16 06:16 Range/Units Troponin I 32.900 *H 22.800 *H 0-0.045 ng/ml Impression: 76-year-old male 1. Completed inferior, posterior myocardial infarction after successful circumflex coronary intervention 2. Dyslipidemia Plan: Continue current medication therapy with aspirin, clopidogrel, metoprolol, lisinopril and atorvastatin. Isosorbide mononitrate. Discontinue full anticoagulation dose Lovenox, and transitioned to DVT prophylaxis Lovenox. Stable for transfer out of the intensive care unit into the telemetry floor. The patient has already walked her to the ICU today with no anginal symptoms. Plan to observe the patient on telemetry and increase his activity as tolerated to make sure he has no additional angina. Abdon Cook D.O. Laboratory Results
--- NOTE | 2016-11-22 14:38 | Critical Care Progress Note ---
Critical Care Progress Note Date of Service Nov 22, 2016. ICU Day ICU Day Number: [address] Crump Subjective 76 yo male with comorbidities of (1) BPH seems to have history of (2) CAD with stable angina admitted with (4) NSTEMI found to have OM1 90% occlusion not amenable to PCI or stent. His cath complicated by ? spasm/acute occlusion and (5 ) STEMI and Cardiology recommends medical therapy for now. He has no CP since yesterday. NTG stopped. Enoxaparin is DVT dose now oral isosorbide mononitrate started He walked around the unit and was CP, neck pain SOB free. troponin is trending down after pk at 32 Objective General Appearance: well-appearing, mild distress Head: normocephalic, atraumatic Eyes: PERRLA, no discharge ENT: normal sinus exam Neck: normal range of motion, supple Respiratory: clear to auscultation Cardiovasular: regular rate/rhythm, no M/G/R No rub heard. Abdomen: non tender, normal bowel sounds, no rebound, no masses, no guarding Genitourinary - Male: external genitalia normal Back: normal inspection Extremities: no edema clubbing or cyanosis. Pulses: carotid (R) (2+), carotid (L) (2+), dorsalis pedis (R) (2+), dorsalis pedis (L) (2+), posterior tibial (R), posterior tibial (L). Neuro: alert, oriented x 3, normal motor exam Current SOFA Score SOFA Score Response (Comments) Value Platelets (x10) > 150 0 Bilirubin (mg/dL) < 1.2 0 [place]ton Coma Score 15 0 Level of Hypotension No Hypotension 0 Creatinine (mg/dL) 1.2 - 1.9 1 Total 1 Previous SOFA Scores 1 Assessment & Plan (1) BPH s (2) CAD with (3) chest pain stable angina admitted with (4) NSTEMI found to have OM1 90% occlusion not amenable to PCI or stent. His cath complicated by ? spasm/acute occlusion and (5) STEMI now pain resolved Neurologic lorazepam 0.5 mg PRN Q6 anxiety morphine sulfate 2 mg Q2 PRN CP Respiratory O2 via NC 2-4 lit/min titrate to SPO2>98% Cardiovascular CT sinuses showed no acute sinusitis. Carotid duplex shows no obstruction. he jaw/neck pain is likely related to angina per cardiology isosorbide mononitrate started 30 mg PO daily. NTG drip stopped ASA 81 mg PO daily ATORVASTATIN 80 mg PO daily metoprolol 50 mg PO BID. lisinopril 5 mg PO daily plavix 75 mg daily lovenox prophylactic dose troponin trending down GI diet heart healthy diet no need for GI prophylaxis continue his vitamin C supplement Renal FU electrolytes and replete He is freely voiding and no I/O available continue Flomax home dose ID no foci of infection will monitor endocrine no history of DM DVT prophylaxis lovenox prophylactic dose patient will be moved to telemetry Spent 40 minutes of CC time Consults & Procedures Consultants: cardiology Procedures: cardiac cath Data Medications: Current Inpatient Medications Medications (Trade) Dose Ordered Sig/Sergei Route Start Time Stop Time Status Last Admin Dose Admin Miscellaneous (Iv Fluids Completed) 1 ea PRN PRN N/A 11/18/16 14:00 11/18/17 13:59 Acetaminophen (Tylenol Tab) 650 mg Q4H PRN PO 11/18/16 14:30 12/18/16 14:29 Nitroglycerin (Nitrostat Tab) 0.4 mg UD PRN SL 11/18/16 14:30 12/18/16 14:29 Aspirin (Ecotrin Tab) 81 mg DAILY PO 11/19/16 09:00 12/19/16 08:59 11/22/16 08:11 81 MG Multivitamins (Multivitamin Tab) 1 tab DAILY PO 11/19/16 09:00 12/19/16 08:59 11/22/16 08:11 1 TAB Ascorbic Acid (Vitamin C Tab) 1,000 mg DAILY PO 11/19/16 09:00 12/19/16 08:59 11/22/16 08:11 1,000 MG Tamsulosin HCl (Flomax Cap) 0.4 mg HS PO 11/19/16 21:00 12/19/16 20:59 11/21/16 21:21 0.4 MG Atropine Sulfate (Atropine Sulfate 0.1MG/Ml Inj) 0.5 mg ONE PRN IV 11/19/16 12:15 12/19/16 12:14 Lisinopril (Zestril Tab) 5 mg QAM PO 11/20/16 09:00 12/20/16 08:59 11/22/16 08:11 5 MG Lorazepam 0.5 mg/ Syringe 1 ml @ 1 mls/min Q6H PRN IV 11/19/16 12:15 12/19/16 12:14 11/19/16 14:49 1 MLS/MIN Atorvastatin Calcium (Lipitor Tab) 80 mg QAM PO 11/20/16 09:00 12/20/16 08:59 11/22/16 08:11 80 MG Lorazepam (Ativan Inj) 0.5 mg Q6H PRN IV 11/19/16 13:30 12/19/16 13:29 Tramadol HCl (Ultram Tab) 25 mg Q6H PRN PO 11/20/16 06:45 12/20/16 06:44 11/20/16 06:43 25 MG Metoprolol Tartrate (Lopressor Tab) 50 mg Q12 PO 11/20/16 09:00 12/19/16 20:59 Future hold 11/22/16 08:11 50 MG Clopidogrel Bisulfate (plAVix TAB) 75 mg QAM PO 11/20/16 09:00 12/20/16 08:59 11/22/16 08:11 75 MG Enoxaparin Sodium (Lovenox Inj) 90 mg Q12H SQ 11/20/16 10:00 11/22/16 21:59 11/22/16 08:12 90 MG Ondansetron HCl (Zofran Inj) 4 mg Q4H PRN IV 11/20/16 12:04 12/18/16 12:03 11/20/16 12:14 4 MG Polyethylene (Miralax Powder Packet) 17 gm DAILY PRN PO 11/20/16 15:00 12/20/16 14:59 11/20/16 15:34 17 GM Colchicine (Colchicine Tab) 0.6 mg BID PO 11/21/16 21:00 12/21/16 20:59 11/22/16 08:11 0.6 MG Enoxaparin Sodium (Lovenox Inj) 40 mg Q24H SQ 11/22/16 22:00 12/22/16 21:59 Isosorbide Mononitrate (Imdur Ext Rel Tab) 30 mg QAM PO 11/23/16 09:00 12/23/16 08:59 I & O: 24-Hour Column 11/23/16 08:00 Intake Total 480 ml Balance 480 ml Vital Signs: Date Time Temp Pulse Resp B/P (MAP) Pulse Ox O2 Delivery O2 Flow Rate FiO2 11/22/16 14:00 74 20 11/22/16 12:00 Room Air 11/22/16 11:25 36.6 70 16 97/56 (70) 96 Room Air 11/22/16 10:00 68 16 11/22/16 08:02 36.6 79 18 107/55 (72) 95 Room Air 11/22/16 08:00 Room Air 11/22/16 05:01 65 10 96/43 (60) 94 Room Air 11/22/16 04:06 93 Room Air 11/22/16 04:01 36.8 64 20 92/48 (63) 94 Room Air 11/22/16 03:01 76 17 116/66 (83) 94 Room Air 11/22/16 02:02 63 21 99/53 (68) 93 Room Air 11/22/16 00:03 36.8 76 20 107/66 (80) 92 Room Air 11/22/16 00:01 93 Room Air 11/21/16 23:01 77 19 124/71 (88) 92 Room Air 11/21/16 22:05 36.8 77 8 104/44 (64) 94 11/21/16 20:10 96 Room Air 11/21/16 19:30 36.8 86 21 112/92 (99) 94 Room Air 11/21/16 18:08 85 22 126/68 (87) 96 Room Air 11/21/16 15:54 36.9 79 16 124/70 (88) 96 Room Air 11/21/16 15:54 98 Room Air Laboratory Results: Last 24 Hours Test 11/22/16 06:16 White Blood Count 11.16 K/uL Red Blood Count 4.73 M/uL Hemoglobin 14.6 g/dL Hematocrit 42.8 % Mean Corpuscular Volume 90.5 fL Mean Corpuscular Hemoglobin 30.9 pg Mean Corpuscular Hemoglobin Concent 34.1 g/dl Platelet Count 163 K/uL Mean Platelet Volume 9.8 fL Neutrophils (%) (Auto) 74.8 % Lymphocytes (%) (Auto) 14.5 % Monocytes (%) (Auto) 9.3 % Eosinophils (%) (Auto) 0.9 % Basophils (%) (Auto) 0.2 % Neutrophils # (Auto) 8.35 K/uL Lymphocytes # (Auto) 1.62 K/uL Monocytes # (Auto) 1.04 K/uL Eosinophils # (Auto) 0.10 K/uL Basophils # (Auto) 0.02 K/uL RDW Standard Deviation 47.4 fL RDW Coefficient of Variation 14.2 % Immature Granulocyte % (Auto) 0.3 % Immature Granulocyte # (Auto) 0.03 K/uL Activated Partial Thromboplast Time 33.2 SECONDS Partial Thromboplastin Ratio 1.3 Sodium Level 140 mmol/L Potassium Level 3.9 mmol/L Chloride Level 106 mmol/L Carbon Dioxide Level 27 mmol/L Anion Gap 7.0 mmol/L Blood Urea Nitrogen 18 mg/dl Creatinine 1.30 mg/dl Est Creatinine Clear Calc Drug Dose 52.0 ml/min Estimated GFR () 61.4 Estimated GFR (Non- 53.0 BUN/Creatinine Ratio 14.2 Random Glucose 100 mg/dl Calcium Level 8.3 mg/dl Troponin I 22.800 ng/ml
[2016-11-22] MEDS: TAMSULOSIN HCL 0.4 MG CAP PO SCH (21:34)
[2016-11-22] MEDS ORDERED: ENOXAPARIN 40 MG/0.4 ML SYR SQ SCH (22:00)
[2016-11-23 03:08] VITALS: BP 93/56; PULSE 80; TEMP 37; O2SAT 97
[2016-11-23 05:52] LABS: HEMATOCRIT 38.8 % (42-52); MEAN CELL VOLUME 90.2 fL (80-100); MEAN CORPUSCULAR HEMOGLOBIN 30.2 pg (25-34); MEAN CORPUSCULAR HGB CONC 33.5 g/dl (32-36); MEAN PLATELET VOLUME 10.1 fL (7.4-10.4); PLATELET COUNT 168 K/uL (130-400)
[2016-11-23 06:22] LABS: BUN/CREATININE RATIO 16.3 (10-20); CALCIUM 7.9 mg/dl (8.5-10.1); CREATININE 1.2 mg/dl (0.60-1.40); POTASSIUM 3.6 mmol/L (3.5-5.1)
[2016-11-23 06:29] LABS: CKMB/CK RATIO 2.6 (0-3.0)
[2016-11-23] MEDS: COLCHICINE 0.6 MG TAB PO SCH (07:47)
[2016-11-23] MEDS: CLOPIDOGREL BISULFATE 75 MG TAB PO SCH (07:47)
[2016-11-23] MEDS: ASPIRIN 81 MG ECTAB PO SCH (07:47)
[2016-11-23] MEDS: ATORVASTATIN 40 MG TAB PO SCH (07:47)
[2016-11-23 07:48] VITALS: BP 99/59; PULSE 70; TEMP 37.5; O2SAT 95
[2016-11-23] MEDS: ASCORBIC ACID 500 MG TAB PO SCH (07:48)
[2016-11-23] MEDS: METOPROLOL TARTRATE 50 MG TAB PO SCH (07:48)
[2016-11-23] MEDS: MULTIVITAMIN TAB PO SCH (07:48)
[2016-11-23] MEDS: LISINOPRIL 5 MG TAB PO SCH (07:49)
[2016-11-23] MEDS ORDERED: ISOSORBIDE MONONITRATE 30 MG TABCR PO SCH (09:00)
[2016-11-23] MEDS ORDERED: METOPROLOL SUCC 50MG EXT REL TAB PO STA (10:34)
--- NOTE | 2016-11-23 10:44 | Cardiology Follow-Up ---
Subjective General Date of Service: Nov 23, 2016. Chief Complaint: follow-up myocardial infarction Pt evaluation today including: conversation w/ patient, physical exam History of Present Illness The patient is a 76 year old male seen in follow up. Denies angina. States "head feels full" and is concerned he is on to much medication. Telemetry reveals stable SR at 60 bpm with occasional rare isolated PVCs and no sustained arrhythmia. Allergies Coded Allergies: No Known Allergies (Unverified , 11/18/16) Social History Smoking Status: Former Smoker Hx Tobacco Use In Past Year?: No Hx Alcohol Use - Type And Amou: Yes (WINE AND BEER ON OCCASION) Hx Substance Use - Type And Am: No Problem List Medical Problems: (1) Substernal chest pain Status: Acute Physical Exam Vital Signs Last Vital Signs Documentation Date Time Temp Pulse Resp B/P (MAP) Pulse Ox O2 Delivery O2 Flow Rate FiO2 11/23/16 07:48 37.5 70 18 99/59 (72) 95 Room Air 11/20/16 08:00 2.0 Physical Exam Constitutional: Level of Distress: NAD Head: normocephalic Neck: supple Lungs: Auscultation: no wheezing, no rales/crackles Cardiovascular: Heart Auscultation: RRR, no murmurs, no rubs Extremities: no cyanosis, no edema Neurologic: Gait & Station: pertinent finding (no edema) Assessment and Plan Assessment and Plan Last Resulted 11/23/16 05:04 Last Resulted 11/23/16 05:04 Past 24 Hours Test 11/23/16 05:04 Range/Units Creatine Kinase MB 4.6 H 0.5-3.6 ng/ml Creatine Kinase MB Ratio 2.6 0-3.0 Total Creatine Kinase 175 39-308 U/L Troponin I 14.300 *H 0-0.045 ng/ml Impression: 76-year-old male 1. Completed inferior, posterior myocardial infarction after successful circumflex coronary intervention 2. Dyslipidemia Plan: DC Imdur as SPB is 99 mm Hg. Reduce metoprolol from tartrate 50 mg BID to 50 mg of metoprolol succinate daily. Update echo for reassessment of LVEF , depending on echo findings, possible DC to home later today. Follow up with Dr Coleman in 1-2 weeks. Abdon Cook D.O. Laboratory Results Last 24 Hours Test 11/23/16 05:04 White Blood Count 8.40 K/uL Red Blood Count 4.30 M/uL Hemoglobin 13.0 g/dL Hematocrit 38.8 % Mean Corpuscular Volume 90.2 fL Mean Corpuscular Hemoglobin 30.2 pg Mean Corpuscular Hemoglobin Concent 33.5 g/dl RDW Standard Deviation 46.8 fL RDW Coefficient of Variation 14.2 % Platelet Count 168 K/uL Mean Platelet Volume 10.1 fL Sodium Level 140 mmol/L Potassium Level 3.6 mmol/L Chloride Level 105 mmol/L Carbon Dioxide Level 26 mmol/L Anion Gap 9.0 mmol/L Blood Urea Nitrogen 20 mg/dl Creatinine 1.20 mg/dl Est Creatinine Clear Calc Drug Dose 55.7 ml/min Estimated GFR () 67.7 Estimated GFR (Non- 58.4 BUN/Creatinine Ratio 16.3 Random Glucose 118 mg/dl Calcium Level 7.9 mg/dl Total Creatine Kinase 175 U/L Creatine Kinase MB 4.6 ng/ml Creatine Kinase MB Ratio 2.6 Troponin I 14.300 ng/ml
[2016-11-23 11:37] VITALS: BP 102/58; PULSE 71; TEMP 36.8; O2SAT 97
[2016-11-23] MEDS ORDERED: PERFLUTREN LIPID MICROSPHERE (DEFINITY) IV ONE (12:22)
--- NOTE | 2016-11-23 13:19 | Cardiology Progress Note ---
Cardiology Progress Note Date of Service Nov 23, 2016. Cardiology Progress Note The patient's repeat echo from today was reviewed: A focussed study was perforemd to reassess LV wall motion and systolic function. Limited views were obtained. There is a moderate sized posterior and lateral wall motion abnormality with hypokinesis to akinesis of the segments. Left ventricular systolic function is low normal. The LV Ejection Fraction = 50-55%. Patient is stable for discharge from cardiac perspective. Follow up with Dr Coleman in 1-2 weeks.
[2016-11-23 15:38] VITALS: BP 93/58; PULSE 60; TEMP 36.6; O2SAT 95
[2016-11-23] MEDS ORDERED: CLC6 PO (15:56)
[2016-11-23] MEDS ORDERED: TPRSR50 PO (15:56)
[2016-11-23] MEDS ORDERED: LPT40 PO (15:56)
[2016-11-23] MEDS ORDERED: PLV75 PO (15:56)
[2016-11-23] MEDS ORDERED: LSN5 PO (15:56)
[2016-11-23] MEDS ORDERED: NTRSLP4 SL (15:56)
--- NOTE | 2016-11-23 16:02 | Discharge Instructions ---
Discharge Instructions Date of Service Nov 23, 2016. Admission Reason for Admission: Chest Pain Discharge Discharge Diagnosis / Problem: ACUTE OH Discharge Goals Goal(s): Decrease discomfort, Improve disease control, Diagnostic testing, Therapeutic intervention Activity Recommendations Activity Limitations: as noted below ( TOLERATED ) . Instructions / Follow-Up Instructions / Follow-Up Home Care: * Take your medications exactly as directed. Don't skip doses. * Remember that recovery after a heart attack takes time. Plan to rest for at lease 4-8 weeks while you recover. Then return to normal activity when your doctor says it's okay. * Ask your doctor about joining a heart rehabilitation program. * Tell your doctor if you are feeling depressed. Feelings of sadness are common after a heart attack, but it is important that you speak to someone if you are feeling overwhelmed by these feelings. * If you are having chest pain, call 911 for an ambulance. Do NOT drive yourself to the hospital. * Ask your family members to learn CPR. * Learn to take your own blood pressure and pulse. Keep a record of your results. Ask your doctor when you should seek emergency medical attention. He or she will tell you which blood pressure reading is dangerous. Lifestyle Changes: * Maintain a healthy weight. Get help to lose any extra pounds. * Cut back on salt. * Limit canned, dried, packaged, and fast foods. * Don't add salt to your food. * Season foods with herbs instead of salt when you cook. * Break the smoking habit. Enroll in a stop-smoking program to improve your chances of success. * Limit fatty foods. * Check your lipid levels regularly. (Your doctor can show you how to do this.) * Build up your activity according to your doctor's recommendation. * Ask your doctor when it's okay to resume sexual activity. * Tell your doctor about any erectile dysfunction (ED) medication you are taking. Some ED medications are not safe if you take certain heart medications. * Try to manage stress. Follow Up: It is important for you to keep your follow up appointments with your medical provider. HOSPITAL FOLLOW UP ON 11/25/2016 @ 9:[address] DOWD [facility] CARDIOLOGY FOLLOW UP WITH DR SUN IN 2-3 WEEKS REFERRAL MADE FOR CARDIAC REHAB , OFFICE WILL CALL TO SCHEDULE APPOINTMENT Current Hospital Diet Patient's current hospital diet: AHA Diet (Heart Healthy) Discharge Diet Recommended Diet: AHA Diet (Heart Healthy) Pending Studies Studies pending at discharge: no Laboratory Results Lipid Panel Test 11/19/16 04:03 Range/Units Triglycerides Level 187 H 0-150 mg/dl Cholesterol Level 185 0-200 mg/dl HDL Cholesterol 52 mg/dl Cholesterol/HDL Ratio 3.6 LDL Cholesterol, Calculated 96 mg/dl Medical Emergencies . Who to Call and When: Medical Emergencies: If at any time you feel your situation is an emergency, please call 911 immediately. Call 911 immediately or go to your nearest Emergency Room if you experience any of the following: Warning Signs and Symptoms of a Heart Attack * Chest pain that is not relieved by medication * Shortness of breath . Non-Emergent Contact Non-Emergency issues call your: Primary Care Provider . . "Provider Documentation" section prepared by Sandra Burkett. . AMI Core Measures Reason no ASA as I/P: Treatment provided - N/A Reason no ASA at D/C: Treatment provided - N/A Reason no statin as I/P: Treatment provided - N/A Reason no statin at D/C: Treatment provided - N/A VTE Core Measure Inpt VTE Proph given/why not?: Enoxaparin (Lovenox)SQ
[2016-11-23 16:12] VITALS: BP 93/58; PULSE 60; TEMP 36.6; O2SAT 95
--- NOTE | 2016-11-23 16:42 | Progress Note ---
Internal Med Progress Note Date of Service: Nov 23, 2016. Provider Documentation: SUBJECTIVE: BP was low in AM Imdur discontinued feels fine , no complain of chest pain or SOB evaluated by Cardiology earlier stable to be discharged home today OBJECTIVE: Vital Signs-as noted below Exam: General-no sign of distress Eyes-sclera non icteric Lungs-CTA Heart-regular S1/S2 Abdomen-soft, non tender Extremities-no lower ext edema Neuro-AAO x3, no focal deficit Lab data as noted below. ASSESSMENT & PLAN: NSTEMI: presented with chest pain /TODD /reduced exercise tolerance underwent cardiac cath found to have diffuse CAD with high grade stenosis -90% in OM unable to do intervention/PTCA -developed complete occlusion of culprit vessel given high risk for Coronary artery perforation with further attempt Completed inferior, posterior myocardial infarction after unsuccessful circumflex coronary intervention medical management was found to most beneficial in this case pt was in ICU Integrilin gtt continued for 18 hrs , weaned off Nitro gtt Current Cardiac meds : ASA 81 mg PO daily ATORVASTATIN 80 mg PO daily Toprol XL 50 mg daily ( beta césar dose adjusted due to hypotension ) Imdur discontinued due to same lisinopril 5 mg PO daily plavix 75 mg daily troponin was elevated 28 -> peaked at 32 -now trending down to 22 ->14 no complain of chest pain , TODD Cardiology eval appreciated repeat ECHO post DC : There is mild concentric left ventricular hypertrophy. The left ventricular wall motion is normal at rest. Ejection Fraction = 55-60%. pt is stable to be discharged home today with above cardiac meds Cardiology follow up in 2-3 weeks Referral made for cardiac rehab SORE THROAT : Has been a chronic issue since last Apr 2016 was treated with Z pack , prednisone taper , nasal spray over the counter agents no improvement of symptoms mentions that he always feels his throat been closing on him denies of any problem with swallowing pt was asked to be evaluated by ENT by Family Physician pt counselled will need ENT eval as out patient after recovery form acute DC DVT PROPHYLAXIS Lovenox SQ FULL CODE DISPOSITION discharge to home today referral made to Cardiac rehab Medicine follow up with Dr Galo already has appointment scheduled for Thursday11/25/16 Follow up with Cardiology as out patient in 2-3 weeks Vital Signs: Date Time Temp Pulse Resp B/P (MAP) Pulse Ox O2 Delivery O2 Flow Rate FiO2 11/23/16 16:12 36.6 60 18 95 Room Air 11/23/16 15:38 36.6 60 18 93/58 (70) 95 Room Air 11/23/16 12:00 Room Air 11/23/16 11:37 36.8 71 18 102/58 (73) 97 Room Air 11/23/16 08:00 Room Air 11/23/16 07:48 37.5 70 18 99/59 (72) 95 Room Air 11/23/16 03:08 37.0 80 18 93/56 (68) 97 Room Air 11/22/16 23:01 37.0 63 20 94/54 (67) 95 Room Air 11/22/16 20:00 Nasal Cannula Lab Results: Results Past 24 Hours Test 11/23/16 05:04 Range/Units White Blood Count 8.40 4.8-10.8 K/uL Red Blood Count 4.30 4.7-6.1 M/uL Hemoglobin 13.0 14.0-18.0 g/dL Hematocrit 38.8 42-52 % Mean Corpuscular Volume 90.2 80-100 fL Mean Corpuscular Hemoglobin 30.2 25-34 pg Mean Corpuscular Hemoglobin Concent 33.5 32-36 g/dl RDW Standard Deviation 46.8 36.4-46.3 fL RDW Coefficient of Variation 14.2 11.5-14.5 % Platelet Count 168 130-400 K/uL Mean Platelet Volume 10.1 7.4-10.4 fL Sodium Level 140 136-145 mmol/L Potassium Level 3.6 3.5-5.1 mmol/L Chloride Level 105 98-107 mmol/L Carbon Dioxide Level 26 21-32 mmol/L Anion Gap 9.0 3-11 mmol/L Blood Urea Nitrogen 20 7-18 mg/dl Creatinine 1.20 0.60-1.40 mg/dl Est Creatinine Clear Calc Drug Dose 55.7 ml/min Estimated GFR () 67.7 Estimated GFR (Non- 58.4 BUN/Creatinine Ratio 16.3 10-20 Random Glucose 118 70-99 mg/dl Calcium Level 7.9 8.5-10.1 mg/dl Total Creatine Kinase 175 39-308 U/L Creatine Kinase MB 4.6 0.5-3.6 ng/ml Creatine Kinase MB Ratio 2.6 0-3.0 Troponin I 14.300 0-0.045 ng/ml
--- NOTE | 2016-11-23 16:44 | Discharge Summary ---
Discharge Summary Date of Service Nov 23, 2016. Discharge Summary Admission Date: November 19, 2016 at 14:48 Discharge Date: Nov 23, 2016 Discharge Disposition: Home Principal Diagnosis: ACUTE NM Procedures: CARDIAC CATH ECHO : There is mild concentric left ventricular hypertrophy. The left ventricular wall motion is normal at rest. Ejection Fraction = 55-60%. Consultations: [facility] [place] [facility]EL[facility] Medication Reconciliation New Medications: Atorvastatin (Atorvastatin Calcium) 40 Mg Tab 80 MG PO QAM for 30 Days, #60 TAB 2 Refills Clopidogrel Bisulfate (Clopidogrel) 75 Mg Tab 75 MG PO QAM for 30 Days, #30 TAB 3 Refills Colchicine (Colcrys) 0.6 Mg Tab 0.6 MG PO BID for 7 Days, #14 TAB Lisinopril (Lisinopril) 5 Mg Tab 5 MG PO QAM for 30 Days, #30 TAB 2 Refills Metoprolol Succinate (Metoprolol Succinate ER) 50 Mg Tabcr 50 MG PO QAM for 30 Days, #30 TABS 2 Refills Nitroglycerin (Nitrostat) 0.4 Mg/1 Tab Subl 0.4 MG SL UD PRN for Chest Pain, #30 TBS 3 Refills Continued Medications: Ascorbic Acid (Vitamin C) 1,000 Mg Tab 1000 MG PO DAILY Aspirin (Aspirin EC Low Dose) 81 Mg Ectab 81 MG PO DAILY Coenzyme Q10 (Ubidecarenone) (Co Q10) 50 Mg Cap 100 MG PO DAILY, CAP Multivitamin (Multivitamin) Tab 1 TAB PO DAILY, TAB Tamsulosin Hcl (Flomax) 0.4 Mg Cap 0.4 MG PO DAILY Tizanidine (Zanaflex) 4 Mg Cap 4 MG PO BID PRN for Muscle Spasms, CAP Discontinued Medications: Ibuprofen (Motrin) 400 Mg Tab 400 MG PO Q6H PRN for Pain, TAB Referrals At Discharge Follow up 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 Patient reports his first episode of chest pain was 4 days ago. He reports he noticed it when he was working outside. He describes the pain as being located in the center of his chest and radiating over to the left. He describes it as an indigestion type feeling. He rates the pain at its worst #5/10. He reports associated left arm numbness. He reports the pain improved with rest. The following day he went on his treadmill, as he typically does, and was only able to walk 1 mile when he can normally walk 2. He reports developing the same type of chest pain however this time had associated shortness of breath. He reports additional episodes of chest pain with exertion the past couple of days. He reports improvement with rest. He denies associated lightheadedness, dizziness, diaphoresis, syncope, or nausea. He reports he otherwise has been feeling well recently. He has been tolerating his ADLs without any problem. No orthopnea or lower extremity edema. He denies abdominal pain, vomiting, or diarrhea. No fever or chills. He denies urinary symptoms. In the ER, patient's initial troponin is negative and EKG does not show any acute ST changes. Patient was given full dose ASA by EMS. Physical Exam (per Admitting): General Appearance: no apparent distress Head: normocephalic Eyes: normal inspection ENT: hearing grossly normal Neck: supple, no JVD Respiratory/Chest: chest non-tender, lungs clear, normal breath sounds, no respiratory distress Cardiovascular: regular rate, rhythm, no edema, normal peripheral pulses Abdomen/GI: normal bowel sounds, non tender, soft Extremities/Musculoskelatal: normal inspection, no calf tenderness Neurologic/Psych: no motor/sensory deficits, alert, normal mood/affect, oriented x 3 Skin: normal color, warm/dry Hospital Course NSTEMI: presented with chest pain /TODD /reduced exercise tolerance underwent cardiac cath found to have diffuse CAD with high grade stenosis -90% in OM unable to do intervention/PTCA -developed complete occlusion of culprit vessel given high risk for Coronary artery perforation with further attempt Completed inferior, posterior myocardial infarction after unsuccessful circumflex coronary intervention medical management was found to most beneficial in this case pt was in ICU Integrilin gtt continued for 18 hrs , weaned off Nitro gtt Current Cardiac meds : ASA 81 mg PO daily ATORVASTATIN 80 mg PO daily Toprol XL 50 mg daily ( beta césar dose adjusted due to hypotension ) Imdur discontinued due to same lisinopril 5 mg PO daily plavix 75 mg daily troponin was elevated 28 -> peaked at 32 -now trending down to 22 ->14 no complain of chest pain , TODD Cardiology eval appreciated repeat ECHO post NM : There is mild concentric left ventricular hypertrophy. The left ventricular wall motion is normal at rest. Ejection Fraction = 55-60%. pt is stable to be discharged home today with above cardiac meds Cardiology follow up in 2-3 weeks Referral made for cardiac rehab SORE THROAT : Has been a chronic issue since last Apr 2016 was treated with Z pack , prednisone taper , nasal spray over the counter agents no improvement of symptoms mentions that he always feels his throat been closing on him denies of any problem with swallowing pt was asked to be evaluated by ENT by Family Physician pt counselled will need ENT eval as out patient after recovery form acute NM DVT PROPHYLAXIS Lovenox SQ FULL CODE DISPOSITION discharge to home today referral made to Cardiac rehab Medicine follow up with Dr Galo already has appointment scheduled for Thursday11/25/16 Follow up with Cardiology as out patient in 2-3 weeks Total time spent on discharge = 35 MINS This includes examination of the patient, discharge planning, medication reconciliation, and communication with other providers. Discharge Instructions DI: Myocardial v4 Discharge Instructions Date of Service Nov 23, 2016. Admission Reason for Admission: Chest Pain Discharge Discharge Diagnosis / Problem: ACUTE NM Discharge Goals Goal(s): Decrease discomfort, Improve disease control, Diagnostic testing, Therapeutic intervention Activity Recommendations Activity Limitations: as noted below ( TOLERATED ) . Instructions / Follow-Up Instructions / Follow-Up Home Care: * Take your medications exactly as directed. Don't skip doses. * Remember that recovery after a heart attack takes time. Plan to rest for at lease 4-8 weeks while you recover. Then return to normal activity when your doctor says it's okay. * Ask your doctor about joining a heart rehabilitation program. * Tell your doctor if you are feeling depressed. Feelings of sadness are common after a heart attack, but it is important that you speak to someone if you are feeling overwhelmed by these feelings. * If you are having chest pain, call 911 for an ambulance. Do NOT drive yourself to the hospital. * Ask your family members to learn CPR. * Learn to take your own blood pressure and pulse. Keep a record of your results. Ask your doctor when you should seek emergency medical attention. He or she will tell you which blood pressure reading is dangerous. Lifestyle Changes: * Maintain a healthy weight. Get help to lose any extra pounds. * Cut back on salt. * Limit canned, dried, packaged, and fast foods. * Don't add salt to your food. * Season foods with herbs instead of salt when you cook. * Break the smoking habit. Enroll in a stop-smoking program to improve your chances of success. * Limit fatty foods. * Check your lipid levels regularly. (Your doctor can show you how to do this.) * Build up your activity according to your doctor's recommendation. * Ask your doctor when it's okay to resume sexual activity. * Tell your doctor about any erectile dysfunction (ED) medication you are taking. Some ED medications are not safe if you take certain heart medications. * Try to manage stress. Follow Up: It is important for you to keep your follow up appointments with your medical provider. HOSPITAL FOLLOW UP ON 11/25/2016 @ 9:[address] GALO Internal Medicine [facility] CARDIOLOGY FOLLOW UP WITH DR COLEMAN IN 2-3 WEEKS REFERRAL MADE FOR CARDIAC REHAB , OFFICE WILL CALL TO SCHEDULE APPOINTMENT Current Hospital Diet Patient's current hospital diet: AHA Diet (Heart Healthy) Discharge Diet Recommended Diet: AHA Diet (Heart Healthy) Pending Studies Studies pending at discharge: no Laboratory Results Lipid Panel Test 11/19/16 04:03 Range/Units Triglycerides Level 187 H 0-150 mg/dl Cholesterol Level 185 0-200 mg/dl HDL Cholesterol 52 mg/dl Cholesterol/HDL Ratio 3.6 LDL Cholesterol, Calculated 96 mg/dl Medical Emergencies . Who to Call and When: Medical Emergencies: If at any time you feel your situation is an emergency, please call 911 immediately. Call 911 immediately or go to your nearest Emergency Room if you experience any of the following: Warning Signs and Symptoms of a Heart Attack * Chest pain that is not relieved by medication * Shortness of breath . Non-Emergent Contact Non-Emergency issues call your: Primary Care Provider . . "Provider Documentation" section prepared by Sandra Burkett. . AMI Core Measures Reason no ASA as I/P: Treatment provided - N/A Reason no ASA at D/C: Treatment provided - N/A Reason no statin as I/P: Treatment provided - N/A Reason no statin at D/C: Treatment provided - N/A VTE Core Measure Inpt VTE Proph given/why not?: Enoxaparin (Lovenox)SQ Additional Copies To WestTiffanie casillas M.D. Lesko, Michael G., DO
--- NOTE | 2016-11-24 08:26 | ECHOCARDIOGRAM REPORT ---
*NOTICE TO RECEIVING LIBERTARIAN AGENCY This information is strictly Confidential and protected under [place] law. [place] law prohibits you from making any further disclosure of this information unless further disclosure is expressly permitted by the written consent of the person to whom it pertains or is authorized by law. A general authorization for the release of medical or other information is not sufficient for this purpose. Hospital accepts no responsibility if the information is made available to any other person, INCLUDING THE PATIENT. Interpretation Summary * Name: WM APARICIO Study Date: 11/23/2016 12:14 PM BP: 102/58 mmHg * Patient Location: .2E\S\E201\S\1 HR: 86 * : 1940 (M/d/yy) Gender: Male Height: 68 in * Age: 76 yrs Ethnicity: [place] Weight: 188 lb * Ordering Physician: Abdon Cook * Referring Physician: No Doctor, Assigned * Performed By: Kilo Dimas RDCS * * Reason For Study: F/U wall motion and LVEF post NE * BSA: 2.0 m2 * -- Conclusions -- * A focussed study was perforemd to reassess LV wall motion and systolic function. Limited views were obtained. * There is a moderate sized posterior and lateral wall motion abnormality with hypokinesis to akinesis of the segments. * Left ventricular systolic function is low normal. * The LV Ejection Fraction = 50-55%. Procedure Details * A two-dimensional transthoracic echocardiogram with M-mode and Doppler was performed. * The study was technically adequate. Left Ventricle * The left ventricle is normal in size. * There is mild concentric left ventricular hypertrophy. * Left ventricular systolic function is low normal. * Ejection Fraction = 50-55%. * There is a moderate sized posterior and lateral wall motion abnormality with hypokinesis to akinesis of the segments. Atria * The left atrial size is normal. Mitral Valve * There is mild mitral regurgitation. Tricuspid Valve * There is mild tricuspid regurgitation. Aortic Valve * The aortic valve is trileaflet. * No hemodynamically significant valvular aortic stenosis. * Aortic regurgitation was not assessed. Pericardium/Pleural * There is no pericardial effusion. MMode 2D Measurements and Calculations IVSd 1.2 cm IVSs 1.7 cm LVIDd 4.9 cm LVIDs 2.9 cm LVPWd 1.2 cm LVPWs 1.7 cm IVS/LVPW 1.0 FS 41.3 % EDV(Teich) 112.3 ml ESV(Teich) 31.5 ml EF(Teich) 72.0 % EDV(cubed) 116.9 ml ESV(cubed) 23.7 ml EF(cubed) 79.7 % % IVS thick 37.9 % % LVPW thick 46.9 % LV mass(C)d 225.3 grams LV mass(C)dI 113.2 grams/m\S\2 LV mass(C)s 187.4 grams LV mass(C)sI 94.1 grams/m\S\2 SV(Teich) 80.8 ml SI(Teich) 40.6 ml/m\S\2 SV(cubed) 93.2 ml SI(cubed) 46.8 ml/m\S\2 ACS 1.8 cm LA dimension 3.7 cm asc Aorta Diam 3.5 cm LVAd ap4 30.2 cm\S\2 LVLd ap4 7.9 cm EDV(MOD-sp4) 94.0 ml LVAs ap4 18.0 cm\S\2 LVLs ap4 6.6 cm ESV(MOD-sp4) 40.0 ml EF(MOD-sp4) 57.4 % LVAd ap2 23.4 cm\S\2 LVLd ap2 7.0 cm EDV(MOD-sp2) 65.0 ml LVAs ap2 14.9 cm\S\2 LVLs ap2 6.7 cm ESV(MOD-sp2) 29.0 ml EF(MOD-sp2) 55.4 % SV(MOD-sp4) 54.0 ml SI(MOD-sp4) 27.1 ml/m\S\2 SV(MOD-sp2) 36.0 ml SI(MOD-sp2) 18.1 ml/m\S\2 Doppler Measurements and Calculations MV E max valeria 94.8 cm/sec MV A max valeria 72.1 cm/sec MV E/A 1.3 MV dec time 0.21 sec Ao V2 max 214.2 cm/sec Ao max PG 18.3 mmHg Ao max PG (full) 11.9 mmHg LV V1 max PG 6.4 mmHg LV V1 max 126.8 cm/sec TR max valeria 248.9 cm/sec
[2016-11-24] MEDS ORDERED: METOPROLOL SUCC 50MG EXT REL TAB PO SCH (09:00)
--- NOTE | 2016-12-12 06:16 | EDITING REQUIRED CODING QUERY ---
CODING QUERY To promote full compliance with coding requirements relating to patient care, provider participation is requested in all cases of pie filling mixer uncertainty. Please assist us with the question(s) below: Coding Question: The patient came in with a N-STEMI and after an unsuccessful PCI, inferior posterior wall infarct was documented. My question is, was this the same TX that developed from the N-STEMI to a STEMI? Or was there a subsequent TX after the N-STEMI? Sorry if this is confusing! Thank you so much for your help! ( ) N-STEMI, present on admission, with subsequent, separate STEMI (x ) N-STEMI, present on admission, that developed into a STEMI ( ) Other, explain Thank you! Sharron Patino Principal Diagnosis: "_that condition established after study, to be chiefly responsible for occasioning the admission of the patient to the hospital for care." Co-Existing Principal Diagnosis: "_when two or more diagnoses equally meet the criteria for principal diagnosis as determined by the circumstances of admission, diagnostic work up, and/or therapy provided, and the Alphabetic Index, Tabular List, or another coding guideline does not provide sequencing direction, any one of the diagnoses may be sequenced first." "When the physician has documented what appears to be a current diagnosis in the body of the record, but has not included the diagnosis in the final diagnostic statement, the physician should be asked whether the diagnosis should be added." (Source Coding [facility] 2 QTR90. p3-4)
== END 2016-11-23 16:45 | disposition home or self-care (01) | DRG 251 ==
LOC: ENRESERVTM → ENRESERVDT → EDBD 12:10 → C.EDC 12:11 → C.2E 13:50 → C.MSICU 11-19 12:06 → OBSVTOIN 11-19 14:48 → C.2E 11-22 19:03
PROVIDERS: ADMIT Hospitalist; ATTEND Hospitalist
PROC: 02703ZZ Dilation of Coronary Artery, One Artery, Percutaneous Approach (ICD-10-PCS; principal; 2016-11-19 10:44)
PROC: 4A023N7 Measurement of Cardiac Sampling and Pressure, Left Heart, Percutaneous Approach (ICD-10-PCS; principal; 2016-11-19 10:44)
DX: I21.19 ST elevation (STEMI) myocardial infarction involving other coronary artery of inferior wall (principal); I25.110 Atherosclerotic heart disease of native coronary artery with unstable angina pectoris; N40.0 Benign prostatic hyperplasia without lower urinary tract symptoms; Z79.82 Long term (current) use of aspirin; Z79.899 Other long term (current) drug therapy; Z87.891 Personal history of nicotine dependence; Y93.A1 Activity, exercise machines primarily for cardiorespiratory conditioning

== ENCOUNTER → 2016-12-17 | Outpatient (CLI) | payer OTHER ==
[~2016-12-17] MED LIST: ASCO10003 PO; ASPEC81 PO; CLC6 PO; COEN1CAP28 PO; LPT40 PO; LSN5 PO; MULT-506 PO; NTRSLP4 SL; PLV75 PO; TAMS0.4C38 PO; TIZA4CAP PO; TPRSR50 PO
--- NOTE | 2016-12-17 10:18 | DIAGNOSTIC IMAGING REPORT ---
(BARIUM SWALLOW) ESOPHAGUS CLINICAL HISTORY: Laryngopharyngeal reflux. Dysphagia. COMPARISON STUDY: None. FLUOROSCOPY TIME: 1.1 minutes. FINDINGS: 26 fluoroscopic images were obtained. There was mild esophageal dysmotility. No esophageal mass or stricture was identified. A small hiatal hernia was noted. No gastroesophageal reflux was elicited. There was persistent prominence of the cricopharyngeus which results in moderate narrowing of the upper esophagus. A 13 mm barium tablet passed into the stomach. IMPRESSION: 1. Small hiatal hernia. 2. Mild esophageal dysmotility. 3. Prominence of the cricopharyngeus on multiple swallows which results in moderate narrowing at the level of the upper esophageal sphincter. Electronically signed by: Benjy Ricardo M.D. 12/17/2016 10:17 AM Dictated Date/Time: 12/17/2016 10:11 AM
== END | disposition home or self-care (01) ==
LOC: C.RAD 09:36
DX: K21.9 Gastro-esophageal reflux disease without esophagitis (principal); K22.2 Esophageal obstruction